=== PATIENT | male | born 1950 | race Caucasian/White ===

== ENCOUNTER 2020-04-17 08:53 | Outpatient (REF) | payer MEDICARE, SELFPAY ==
[2020-04-17 11:16] LABS: MANUAL DIFF FLAG NO
[2020-04-17 11:23] LABS: Basophils Percent Auto 0.7 % (0-2); Eosinophils Absolute Auto 0.2 X10*3/uL (0.0-0.4); Eosinophils Percent Auto 3.7 % (0-4); Hematocrit 42.3 % (42-52); Hemoglobin 14.9 g/dl (14.0-18.0); Imm Gran Abs Auto 0.01 X10*3/uL (0.00-0.03); Imm Gran Pct Auto 0.2 % (0.0-0.4); Lymphocytes Absolute Auto 1.2 X10*3/uL (1.2-4.9); Lymphocytes Percent Auto 28.3 % (20-40); Mean Corpuscular HGB Conc 35.2 g/dl (31.0-36.0); Mean Corpuscular Hemoglobin 31.4 pg (27.0-33.0); Mean Corpuscular Volume 89.2 fL (80-98); Mean Platelet Volume 9.8 fL (9.4-12.4); Monocytes Absolute Auto 0.4 X10*3/uL (0.1-1.2); Monocytes Percent Auto 9.8 % (2-11); Neutrophils Absolute Auto 2.5 X10*3/uL (2.0-8.3); Neutrophils Percent Auto 57.3 % (45-73); Platelet Count 201 X10*3/uL (160-400); Red Blood Count 4.74 X10*6/uL (4.60-5.80); Red Cell Distribution Width 12.2 % (11.0-16.0); White Blood Count 4.4 X10*3/uL (4.8-10.8)
[2020-04-17 12:17] LABS: Alanine Aminotransferase 28 U/L (0-40); Albumin Level 4.5 g/dL (3.5-5.0); Alkaline Phosphatase 99 U/L (39-117); Anion Gap 12 (12-20); Aspartate Amino Transferase 25 U/L (5-37); Bilirubin Total 1.2 mg/dL (0.0-1.0); Blood Urea Nitrogen 14 mg/dL (9-16); Carbon Dioxide 27 mmol/L (22-29); Chloride 107 mmol/L (96-108); Cholesterol 111 mg/dL; Estimated Glomerular Filt Rate > 60; Glucose Fasting 96 mg/dL (60-99); HDL Cholesterol 49 mg/dL; LDL Cholesterol Calculated 51 mg/dl; Potassium 4.4 mmol/l (3.3-5.1); Sodium 142 mmol/L (135-145); Total Protein 6.9 g/dL (6.5-8.0); Triglycerides 57 mg/dL
[2020-04-17 12:29] LABS: Creatinine Urine 162.29 mg/dL; Microalbum/Creatinine Ratio Ur 5.5 ug/mg cr
== END 2020-04-17 08:54 | disposition home or self-care (01) ==
LOC: HO.HMGCLDS 08:53
PROVIDERS: PCP Physician Assistant; Visit Provider Physician Assistant
DX: I25.10 Atherosclerotic heart disease of native coronary artery without angina pectoris (principal); Z95.5 Presence of coronary angioplasty implant and graft
CPT/HCPCS: 36415; 80053; 80061; 82043; 85025

== ENCOUNTER 2020-08-19 10:37 | Outpatient (REF) | payer MEDICARE, SELFPAY ==
--- NOTE | ~2020-08-19 | US_ITS ---
EXAMINATION: US RETROPERITONEAL LIMITED (AORTA) CLINICAL INFORMATION: Atherosclerotic heart disease of [place] coronary. COMPARISON: None. TECHNIQUE: Grayscale, color Doppler and spectral Doppler evaluation of the abdominal aorta. FINDINGS: There is atherosclerotic disease. The measurements of the aorta in maximum AP and transverse dimensions respectively are as follows: PROXIMAL: 2.8 x 2.6 cm. MID: 2.3 x 2.3 cm. DISTAL: 1.6 x 1.9 cm. PSV: 100 The measurements of the common iliac arteries in maximum AP dimension are as follows: RIGHT COMMON ILIAC ARTERY: 1.3 cm. LEFT COMMON ILIAC ARTERY: 1.1 cm. US/US abdominal aortic aneurysm IMPRESSION: No abdominal aortic or iliac artery aneurysm.
== END 2020-08-19 10:38 | disposition home or self-care (01) ==
LOC: HO.HMGCX 10:37
PROVIDERS: PCP Physician Assistant; Visit Provider Physician Assistant
DX: I25.10 Atherosclerotic heart disease of native coronary artery without angina pectoris (principal); I10 Essential (primary) hypertension
CPT/HCPCS: 76706

== ENCOUNTER 2020-10-20 09:39 | Outpatient (REF) | payer MEDICARE, SELFPAY ==
[2020-10-20 11:54] LABS: Estimated Average Glucose 105 mg/dL; Hemoglobin A1c % 5.3 %
[2020-10-20 11:55] LABS: Alanine Aminotransferase 30 U/L (0-40); Albumin Level 4.3 g/dL (3.5-5.0); Alkaline Phosphatase 101 U/L (39-117); Anion Gap 12 (12-20); Aspartate Amino Transferase 28 U/L (5-37); Bilirubin Total 1.1 mg/dL (0.0-1.0); Blood Urea Nitrogen 13 mg/dL (9-16); Calcium 9.5 mg/dL (8.4-10.2); Carbon Dioxide 27 mmol/L (22-29); Chloride 107 mmol/L (96-108); Cholesterol 114 mg/dL; Estimated Glomerular Filt Rate > 60; Glucose Fasting 100 mg/dL (60-99); HDL Cholesterol 48 mg/dL; Hematocrit 42.7 % (42-52); Hemoglobin 14.8 g/dl (14.0-18.0); LDL Cholesterol Calculated 54 mg/dl; Mean Corpuscular HGB Conc 34.7 g/dl (31.0-36.0); Mean Corpuscular Hemoglobin 31.2 pg (27.0-33.0); Mean Corpuscular Volume 89.9 fL (80-98); Mean Platelet Volume 9.6 fL (9.4-12.4); Platelet Count 206 X10*3/uL (160-400); Potassium 4.6 mmol/L (3.3-5.1); Red Blood Count 4.75 X10*6/uL (4.60-5.80); Red Cell Distribution Width 12.3 % (11.0-16.0); Sodium 141 mmol/L (135-145); Total Protein 6.8 g/dL (6.5-8.0); Triglycerides 61 mg/dL; White Blood Count 4.7 X10*3/uL (4.8-10.8)
[2020-10-20 12:04] LABS: Prostate Specific Antigen Scr 0.19 ng/mL (<0.05-4.0); TSH reflex Free T4 0.56 uIU/mL (0.32-4.0)
== END 2020-10-20 09:40 | disposition home or self-care (01) ==
LOC: HO.HMGCLDS 09:39
PROVIDERS: PCP Physician Assistant; Visit Provider Physician Assistant
DX: Z12.5 Encounter for screening for malignant neoplasm of prostate (principal); I25.10 Atherosclerotic heart disease of native coronary artery without angina pectoris; I10 Essential (primary) hypertension
CPT/HCPCS: 36415; 80053; 80061; 83036; 84153; 84443; 85027

== ENCOUNTER 2021-04-02 10:06 | Outpatient (REF) | payer MEDICARE, SELFPAY ==
[2021-04-02 11:31] LABS: Hematocrit 43.8 % (42.0-52.0); Hemoglobin 15.7 g/dl (14.0-18.0); Mean Corpuscular HGB Conc 35.8 g/dl (31.0-36.0); Mean Corpuscular Hemoglobin 31.8 pg (27.0-33.0); Mean Corpuscular Volume 88.8 fL (80.0-98.0); Mean Platelet Volume 9.7 fL (9.4-12.4); Platelet Count 209 X10*3/uL (160-400); Red Blood Count 4.93 X10*6/uL (4.60-5.80); Red Cell Distribution Width 12.3 % (11.0-16.0)
[2021-04-02 12:16] LABS: Alanine Aminotransferase 31 U/L (0-40); Albumin Level 4.5 g/dL (3.5-5.0); Alkaline Phosphatase 101 U/L (39-117); Anion Gap 13 (12-20); Aspartate Amino Transferase 26 U/L (5-37); Bilirubin Total 1.2 mg/dL (0.0-1.0); Blood Urea Nitrogen 17 mg/dL (9-16); Calcium 9.9 mg/dL (8.4-10.2); Carbon Dioxide 25 mmol/L (22-29); Chloride 107 mmol/L (96-108); Cholesterol 128 mg/dL; Estimated Glomerular Filt Rate > 60; Glucose Fasting 106 mg/dL (60-99); HDL Cholesterol 51 mg/dL; LDL Cholesterol Calculated 56 mg/dl; Potassium 4.3 mmol/L (3.3-5.1); Sodium 141 mmol/L (135-145); Total Protein 7.4 g/dL (6.5-8.0); Triglycerides 107 mg/dL
[2021-04-02 12:32] LABS: Creatinine Urine 173.55 mg/dL; Microalbum/Creatinine Ratio Ur 5.7 ug/mg cr
[2021-04-02 12:39] LABS: Prostate Specific Antigen Scr 0.17 ng/mL (<0.05-4.0); TSH reflex Free T4 0.51 uIU/mL (0.32-4.0)
== END 2021-04-02 10:07 | disposition home or self-care (01) ==
LOC: HO.HMGCLDS 10:06
PROVIDERS: PCP Physician Assistant; Visit Provider Physician Assistant
DX: Z12.5 Encounter for screening for malignant neoplasm of prostate (principal); I25.10 Atherosclerotic heart disease of native coronary artery without angina pectoris; I10 Essential (primary) hypertension
CPT/HCPCS: 36415; 80053; 80061; 82043; 84153; 84443; 85027

== ENCOUNTER 2021-05-18 11:06 | Outpatient (REF) | payer MEDICARE, SELFPAY ==
[2021-05-18 14:19] LABS: Anion Gap 10 (12-20); Blood Urea Nitrogen 11 mg/dL (9-16); Carbon Dioxide 27 mmol/L (22-29); Chloride 106 mmol/L (96-108); Estimated Glomerular Filt Rate > 60; Glucose Random 101 mg/dL (60-115); Potassium 4.2 mmol/L (3.3-5.1); Sodium 139 mmol/L (135-145)
== END 2021-05-18 11:07 | disposition home or self-care (01) ==
LOC: HO.LAB 11:06
PROVIDERS: Absent Provider Physician Assistant; PCP Physician Assistant; Visit Provider Internal Medicine Cardiovascular Disease
DX: I10 Essential (primary) hypertension (principal)
CPT/HCPCS: 36415; 80048

== ENCOUNTER 2021-08-27 13:19 | Outpatient (REF) | payer MEDICARE, SELFPAY ==
--- NOTE | ~2021-08-27 | XR_ITS ---
EXAMINATION: XR CERVICAL SPINE CLINICAL INFORMATION: Cervicalgia COMPARISON: None TECHNIQUE: 3 views of the cervical spine were obtained. FINDINGS: No fracture or subluxation. Vertebral body height and alignment maintained. Mild disc space narrowing throughout the cervical spine with prominent endplate osteophytes throughout. Vascular calcifications in the left neck. The atlantoaxial joint is well aligned. The dens is intact. The lung apices are clear. The prevertebral soft tissues are unremarkable. XR/XR cervical spine 3V IMPRESSION: Moderate degenerative changes of the cervical spine.
--- NOTE | ~2021-08-27 | XR_ITS ---
EXAMINATION: XR SHOULDER, LEFT XR SHOULDER, RIGHT CLINICAL INFORMATION: Cervicalgia COMPARISON: None TECHNIQUE: Single view of each shoulder FINDINGS: No fracture or dislocation of either shoulder. The glenohumeral joints are well aligned. The acromioclavicular joints are intact. The visualized lungs are clear. The visualized ribs are intact. XR/XR shoulder LT 1V IMPRESSION: Normal appearance of both shoulders on this single view.
--- NOTE | ~2021-08-27 | XR_ITS ---
EXAMINATION: XR SHOULDER, LEFT XR SHOULDER, RIGHT CLINICAL INFORMATION: Cervicalgia COMPARISON: None TECHNIQUE: Single view of each shoulder FINDINGS: No fracture or dislocation of either shoulder. The glenohumeral joints are well aligned. The acromioclavicular joints are intact. The visualized lungs are clear. The visualized ribs are intact. XR/XR shoulder RT 1V IMPRESSION: Normal appearance of both shoulders on this single view.
== END 2021-08-27 13:20 | disposition home or self-care (01) ==
LOC: HO.HMGCX 13:19
PROVIDERS: PCP Physician Assistant; Visit Provider Physician Assistant
DX: M25.511 Pain in right shoulder (principal); M25.512 Pain in left shoulder; M54.2 Cervicalgia
CPT/HCPCS: 72040; 73020

== ENCOUNTER 2021-10-23 08:17 | Outpatient (REF) | payer MEDICARE, SELFPAY ==
[2021-10-23 12:06] LABS: Hematocrit 43.6 % (42.0-52.0); Hemoglobin 15.6 g/dl (14.0-18.0); Mean Corpuscular HGB Conc 35.8 g/dl (31.0-36.0); Mean Corpuscular Hemoglobin 31.6 pg (27.0-33.0); Mean Corpuscular Volume 88.3 fL (80.0-98.0); Mean Platelet Volume 9.6 fL (9.4-12.4); Platelet Count 205 X10*3/uL (160-400); Red Blood Count 4.94 X10*6/uL (4.60-5.80); Red Cell Distribution Width 12.6 % (11.0-16.0); White Blood Count 5.7 X10*3/uL (4.8-10.8)
[2021-10-23 12:18] LABS: Alanine Aminotransferase 25 U/L (0-40); Albumin Level 4.5 g/dL (3.5-5.0); Alkaline Phosphatase 95 U/L (39-117); Anion Gap 13 (12-20); Aspartate Amino Transferase 26 U/L (5-37); Bilirubin Total 1.2 mg/dL (0.0-1.0); Blood Urea Nitrogen 15 mg/dL (9-16); Calcium 9.5 mg/dL (8.4-10.2); Carbon Dioxide 27 mmol/L (22-29); Chloride 104 mmol/L (96-108); Cholesterol 123 mg/dL; Estimated Average Glucose 103 mg/dL; Estimated Glomerular Filt Rate > 60; Glucose Fasting 104 mg/dL (60-99); HDL Cholesterol 52 mg/dL; Hemoglobin A1c % 5.2 %; LDL Cholesterol Calculated 58 mg/dl; Potassium 4.2 mmol/L (3.3-5.1); Sodium 140 mmol/L (135-145); Total Protein 7.1 g/dL (6.5-8.0); Triglycerides 69 mg/dL
== END 2021-10-23 08:18 | disposition home or self-care (01) ==
LOC: HO.HMGCLDS 08:17
PROVIDERS: PCP Physician Assistant; Visit Provider Physician Assistant
DX: I10 Essential (primary) hypertension (principal); I25.10 Atherosclerotic heart disease of native coronary artery without angina pectoris; R73.09 Other abnormal glucose
CPT/HCPCS: 36415; 80053; 80061; 83036; 85027

== ENCOUNTER 2021-10-29 13:00 | Outpatient (RCR) | payer MEDICARE, SELFPAY | END 2021-10-29 13:56 | disposition home or self-care (01) | LOC: HO.PTCHIC 13:00 | PROVIDERS: PCP Internal Medicine; Visit Provider Physical Medicine & Rehabilitation | DX: M54.2 Cervicalgia (principal) | CPT/HCPCS: 97110; 97140; 97162 ==

== ENCOUNTER 2022-03-23 10:05 | Outpatient (REF) | payer MEDICARE, SELFPAY ==
[2022-03-23 11:41] LABS: Hematocrit 44.1 % (42.0-52.0); Hemoglobin 15.4 g/dl (14.0-18.0); Mean Corpuscular HGB Conc 34.9 g/dl (31.0-36.0); Mean Corpuscular Volume 88.9 fL (80.0-98.0); Mean Platelet Volume 9.6 fL (9.4-12.4); Platelet Count 202 X10*3/uL (160-400); Red Blood Count 4.96 X10*6/uL (4.60-5.80); White Blood Count 4.3 X10*3/uL (4.8-10.8)
[2022-03-23 12:21] LABS: Creatinine Urine 155.25 mg/dL; Microalbum/Creatinine Ratio Ur 5.1 ug/mg cr
[2022-03-23 12:58] LABS: Alanine Aminotransferase 20 U/L (0-40); Albumin Level 4.3 g/dL (3.5-5.0); Alkaline Phosphatase 116 U/L (39-117); Anion Gap 10 (12-20); Aspartate Amino Transferase 22 U/L (5-37); Bilirubin Total 1.3 mg/dL (0.0-1.0); Blood Urea Nitrogen 16 mg/dL (9-16); Calcium 9.6 mg/dL (8.4-10.2); Carbon Dioxide 30 mmol/L (22-29); Chloride 105 mmol/L (96-108); Cholesterol 122 mg/dL; Estimated Glomerular Filt Rate > 60; Glucose Fasting 95 mg/dL (60-99); HDL Cholesterol 51 mg/dL; LDL Cholesterol Calculated 57 mg/dl; Potassium 4.2 mmol/L (3.3-5.1); Sodium 141 mmol/L (135-145); Total Protein 6.9 g/dL (6.5-8.0); Triglycerides 72 mg/dL
[2022-03-23 13:18] LABS: Prostate Specific Antigen Scr 0.23 ng/mL (<0.05-4.0); TSH reflex Free T4 0.92 uIU/mL (0.32-4.0)
== END 2022-03-23 10:06 | disposition home or self-care (01) ==
LOC: HO.HMGCLDS 10:05
PROVIDERS: PCP Physician Assistant; Visit Provider Physician Assistant
DX: Z12.5 Encounter for screening for malignant neoplasm of prostate (principal); I10 Essential (primary) hypertension; I25.10 Atherosclerotic heart disease of native coronary artery without angina pectoris
CPT/HCPCS: 36415; 80053; 80061; 82043; 84153; 84443; 85027

== ENCOUNTER 2022-10-27 07:33 | Outpatient (REF) | payer MEDICARE, SELFPAY ==
[2022-10-27 11:49] LABS: Mean Corpuscular HGB Conc 34.9 g/dl (31.0-36.0); Mean Corpuscular Hemoglobin 31.1 pg (27.0-33.0); Mean Corpuscular Volume 89.2 fL (80.0-98.0); Mean Platelet Volume 9.8 fL (9.4-12.4); Platelet Count 192 X10*3/uL (160-400); Red Blood Count 4.82 X10*6/uL (4.60-5.80); Red Cell Distribution Width 12.9 % (11.0-16.0); White Blood Count 5.5 X10*3/uL (4.8-10.8)
[2022-10-27 12:06] LABS: Alanine Aminotransferase 21 U/L (0-40); Albumin Level 4.2 g/dL (3.5-5.0); Alkaline Phosphatase 107 U/L (39-117); Anion Gap 12 (12-20); Aspartate Amino Transferase 20 U/L (5-37); Bilirubin Total 1.1 mg/dL (0.0-1.0); Blood Urea Nitrogen 14 mg/dL (9-16); Calcium 9.5 mg/dL (8.4-10.2); Carbon Dioxide 27 mmol/L (22-29); Chloride 107 mmol/L (96-108); Cholesterol 117 mg/dL; Estimated Glomerular Filt Rate > 60; Glucose Fasting 111 mg/dL (60-99); HDL Cholesterol 54 mg/dL; LDL Cholesterol Calculated 52 mg/dl; Sodium 142 mmol/L (135-145); Total Protein 7.1 g/dL (6.5-8.0); Triglycerides 55 mg/dL
[2022-10-27 12:25] LABS: Creatinine Urine 247.27 mg/dL; Microalbum/Creatinine Ratio Ur 5.2 ug/mg cr
== END 2022-10-27 07:34 | disposition home or self-care (01) ==
LOC: HO.HMGCLDS 07:33
PROVIDERS: PCP Physician Assistant; Visit Provider Physician Assistant
DX: I25.10 Atherosclerotic heart disease of native coronary artery without angina pectoris (principal); I10 Essential (primary) hypertension
CPT/HCPCS: 36415; 80053; 80061; 82043; 85027

== ENCOUNTER 2022-11-02 09:16 | Outpatient (AMB) | payer MEDICARE, SELFPAY ==
[2022-11-02 09:34] VITALS: BP 126/82; PULSE 69; O2SAT 98; BMI 25.9
--- NOTE | 2022-11-02 09:34 | MHC.PC.OV ---
Vital Signs 11/02/22 09:34 Height 5 ft 7 in Weight 165 lb 6 oz BMI 25.9 BP 126/82 Blood Pressure Location Lt brachial Position Sitting Pulse 69 Pulse Source Pulse Oximeter Pulse Oximetry (%) 98 Oxygen Delivery Method Room Air Intake Visit Reasons: PE Allergies No Known Allergies Allergy (Verified 11/02/22 10:07) Medication List - Last Reconciled 11/02/22 by Joe Tate PA-C alprazolam 0.5 mg PO Q8H 30 days aspirin 81 mg PO DAILY atorvastatin 80 mg PO DAILY 90 days cholecalciferol (vitamin D3) 25 mcg PO DAILY fexofenadine ([facility]elia Allergy) 180 mg PO DAILY 90 days fluticasone propionate 50 mcg/actuation (Flonase Allergy Relief) 1 spray intranasal DAILY 30 days losartan 50 mg PO DAILY sertraline 50 mg PO DAILY 90 days Tobacco use date assessed: 03/25/22 HPI PE HPI Details Patient is a 71-year-old male here today for follow-up visit ? Patient has a past medical history significant for hypertension, coronary artery disease with history of stent placement, impaired glucose metabolism, generalized anxiety disorder. ? . ? CAD: Is followed by [facility] , had an [facility] in May of 2019. ? Denies any CP, SOB or CHF symptoms.? Most recent LDL at 53 ? .. ? HTN: REport BP has been stable at home reporting at reports 120 systolic and on occasion 140 systolic . He? denies any chest discomfort, shortness of breath, vision issues or headaches.? Today in office blood pressure acceptable slightly elevated ?? Element of white coat HTN. We did increase his losartan to 50 mg daily which has helped normalizes blood pressure ? .. ? FELIPE: On XanaX 0.5 g TID and feels he is unable to function without alprazolam. Patient declines my offers to see therapist and psychiatrist at this time.? He has tried hydroxyzine though felt he had side effect in did not help to reduce his anxiety. Has been on Zoloft 50 mg to which he reports he does feel a difference in the severity of his anxiety.? He has been reducing his alprazolam dosing to b.i.d. at times. Again had a long conversation about weaning his dose of Xanax and patient does somewhat understand this.? Patient does have benzodiazepine dependence and he understands this. He is willing to slowly wean his dose as tolerated. .. Vaccines: Up-to-date with COVID, flu, shingles, pneumonia and tetanus vaccines Colon cancer screening: Colonoscopy done 2014 normal repeat 10 years [facility] Surgical History H/O wrist surgery History of colonoscopy History of intravascular stent placement History of tonsillectomy Family History Father Melanoma Mother Alzheimers disease Mental health disorder Social History (Updated 11/02/22 @ 10:10 by Joe Tate PA-C) Housing: House Alcohol intake: current Alcohol intake frequency: holidays/special occasions only Alcohol type: beer Patient Tobacco Use Status: Former Tobacco user Quit Date: 1994 e-Cigarette/Vaping Use: Never Used Second Hand Smoke Exposure: No service: No Current occupational status: retired Cognitive needs: No Hearing needs: No Vision needs: Yes (reading glasses) Questionnaire PHQ-9 Over the last 2 weeks, how often have you been bothered by any of the following problems? 1. Little interest or pleasure in doing things: not at all 2. Feeling down, depressed, or hopeless: not at all 3. Trouble falling or staying asleep, or sleeping too much: not at all 4. Feeling tired or having little energy: not at all 5. Poor appetite or overeating: not at all 6. Feeling bad about yourself - or that you are a failure or have let yourself or your family down: not at all 7. Trouble concentrating on things, such as reading the newspaper or watching television: not at all 8. Moving or speaking so slowly that other people could have noticed. Or the opposite - being so fidgety or restless that you have been moving around a lot more than usual: not at all 9. Thoughts that you would be better off or of hurting yourself in some way: not at all Total score: 0 Depression Screening Interpretation: Negative 58419 - PHQ-9 Billing: Yes Source: Developed by Drs. Catracho Morrison, Yodit B.Massimo Smart and colleagues, with an educational ap from [employer]. Thrive Questionnaire Date Thrive assessed: 03/25/22 I am a: Patient What is your living situation today?: I have a steady place to live Within the past 12 months, did the food you bought not last and you didn't have the money to get more?: Never true Within the past 12 months, did you worry whether your food would run out before you got money to buy more?: Never true Currently or been in a relationship where the following occur: no concerns reported AUDIT C Alcohol Use Questionnaire (AUDIT-C) 1. How often do you have a drink containing alcohol?: Monthly or less 2. How many drinks containing alcohol do you have on a typical day when you are drinking?: 1 or 2 3. How often do you have six or more drinks on one occasion?: Never Total Score: 1 FELIPE-7 AMB Questionnaire FELIPE-7 Date FELIPE - 7 assessed: 03/25/22 Feeling nervous, anxious, or on edge: 1 = Several days Not being able to stop or control worryin = Not at all Worrying too much about different things: 1 = Several days Trouble relaxin = Several days Being so restless that it is hard to sit still: 1 = Several days Becoming easily annoyed or irritable: 1 = Several days Feeling afraid as if something awful might happen: 0 = Not at all Total FELIPE-7 score (0-4 normal; 5-9 mild; 10-14 moderate; 15-21 severe): 5 Source: Developed by Drs. Catracho Morrison, Massimo Hollins and colleagues, with an educational ap from [employer]. FELIPE-7 Assessment Billing FELIPE-7 Assessment Tool: FELIPE-7 Assessment 10848 Review of Systems Const Denies body aches, Denies chills, Denies excessive sweating, Denies fatigue, Denies fever(s) and Denies headache(s) Eyes Denies blurry vision ENT Denies dysphagia, Denies vertigo, Denies dizziness, Denies headache(s), Denies hearing loss and Denies tinnitus Card Denies chest pain, Denies chest pain with activity, Denies syncope, Denies irregular heart rhythm and Denies dyspnea Resp Denies chest congestion, Denies cough, Denies hemoptysis, Denies dyspnea and Denies wheezing GI Denies abdominal pain, Denies melena, Denies hematochezia, Denies coffee ground emesis, Denies dysphagia, Denies diarrhea, Denies nausea and Denies vomiting Denies difficulty urinating, Denies dysuria, Denies urinary frequency, Denies urinary hesitancy and Denies urinary urgency Musc Denies arthralgias, Denies limited range of motion, Denies muscle cramps and Denies muscle weakness Skin/Breast Denies rash and Denies skin ulcer Neuro Denies Abnormal speech present, Denies confusion, Denies vertigo, Denies dizziness, Denies syncope, Denies headache(s), Denies memory loss and Denies seizure-like activity Psych Denies anxiety, Denies confusion, Denies depression, Denies memory loss, Denies panic attacks and Denies paranoia Endo Denies excessive sweating, Denies fatigue, Denies flushing, Denies polydipsia and Denies polyuria Aller/Immun Denies wheezing Physical exam (Primary Care) Vital Signs: Last Vital Signs Pulse 69 11/02/22 09:34 BP 126/82 11/02/22 09:34 Pulse Ox 98 11/02/22 09:34 Oxygen Delivery Method Room Air 11/02/22 09:34 BMI result Body Mass Index 25.9 Tobacco/Smoking Status: Tobacco use Status Tobacco use date assessed 03/25/22 11/02/22 09:35 Patient Tobacco Use Status Former Tobacco user 11/02/22 09:35 e-Cigarette/Vaping Use Never Used 11/02/22 09:35 PHQ-9: PHQ-9 Score PHQ-9: Total score 0 11/02/22 09:49 Depression Screening Interpretation: Negative Thrive Assessment: Date of Thrive Assessment Date Thrive assessed 03/25/22 11/02/22 09:35 Currently or been in a relationship where the following occur: no concerns reported Const General: cooperative, comfortable, no acute distress, alert and awake; No confusion Orientation/consciousness: oriented to person, oriented to place, patient oriented x3 and No confusion HENMT Head: Yes normocephalic Ears: external ears normal and TM's normal bilaterally Face and sinus: No sinus tenderness Mouth: Normal oral and palatal mucosa present and tongue normal Teeth and gingiva: dentition normal and gingiva normal Throat: Yes posterior oropharynx normal, Yes tonsils normal and Yes uvula midline Eyes Conjunctivae: conjunctivae normal Sclerae: sclerae normal Pupils: Equal, round and reactive pupils present EOM: EOMs intact bilaterally Direct Ophthalmoscopy: No no photophobia Neck Neck: Yes no lymphadenopathy, No tender and Yes no JVD Thyroid: Thyroid normal Carotids: no bruits Chest Chest palpation & inspection: no tenderness Resp Effort & Inspection: normal respiratory effort, no audible wheezes, not labored and no stridor Auscultation: no crackles, no rales, no rhonchi and no wheezes Cardio Jugular venous distension: no JVD Rate: regular rate, not bradycardic and not tachycardic Rhythm: regular rhythm Bruits: no carotid bruits Peripheral pulses: Peripheral pulses 2+ throughout GI Inspection: Yes normal to inspection, No abdominal wall ecchymosis and No visible herniation Palpation (GI): Soft to palpation, nontender, no guarding, not rigid and No hepatosplenomegaly present Auscultation: normoactive bowel sounds General: Yes no CVA tenderness Back/Spine/Pelvis Back: no CVA tenderness and No back tenderness Cervical Spine: cervical ROM normal Thoracic/Lumbar Spine: thoracic and lumbar spine normal to inspection, straight leg raise negative bilaterally, No thoraco-lumbar ROM limited and No lumbar spinal tenderness Skin Lesions: no lesions Rashes: no rashes Wounds: no wounds Neuro General: oriented to person, oriented to place, patient oriented x3, CN's II-XI intact bilaterally and No confusion Cranial nerves: Yes Equal, round and reactive pupils present and Yes Normal accommodation reflex present Cognition (Neuro): normal cognition Speech: No Abnormal speech present Gait exam (Neuro): Normal gait present Motor exam (neuro): 5/5 motor strength present throughout Extrem Right upper extremity: full ROM; no cyanosis Left upper extremity: full ROM; no cyanosis Right lower extremity: no edema Left lower extremity: no edema Psych Appearance: grossly normal Mental Status: mental status grossly normal Affect: normal affect Attitude: cooperative Thought process: Normal thought process present Assessment and Plan Assessment & Plan (1) Annual physical exam: Code(s): Z00.00 - Encounter for general adult medical examination without abnormal findings (2) HTN (hypertension): Code(s): I10 - Essential (primary) hypertension Qualifiers: Hypertension type: essential hypertension Qualified Code(s): I10 - Essential (primary) hypertension Plan: Patient's blood pressure acceptable today in office. He does do home blood pressure readings which seem to be 110s to 130 systolic. Otherwise denies any chest pain, dizziness or headaches. Will continue current dose of losartan with goal blood pressure remain below 140/90 (3) CAD (coronary artery disease): Code(s): I25.10 - Atherosclerotic heart disease of [place] coronary artery without angina pectoris Qualifiers: Coronary Disease-Associated Artery/Lesion type: [place] artery [place] vs. transplanted heart: [place] heart Associated angina: without angina Qualified Code(s): I25.10 - Atherosclerotic heart disease of [place] coronary artery without angina pectoris Plan: Patient continues to follow cardiology on annual basis. Most recent lipid panel showing excellent control over his total cholesterol and LDL. Goal LDL is to remain below 70 (4) FELIPE (generalized anxiety disorder): Code(s): F41.1 - Generalized anxiety disorder Plan: Patient continues on alprazolam and sertraline for his anxiety. He does still have some breakthrough anxiety, we did discuss the habit-forming nature of benzodiazepines and patient does understand the risk of continuing taking benzodiazepines and well into his 70s. He will try to continue weaning the daily dose Orders: Orders Comprehensive [place]. Panel Fast 6 Months I10 - Essential (primary) hypertension Hemoglobin A1c 6 Months R73.09 - Other abnormal glucose Lipid Panel 6 Months I25.10 - Atherosclerotic heart disease of [place] coronary artery without angina pectoris Prostate Specific Antigen Scr 6 Months I25.10 - Atherosclerotic heart disease of [place] coronary artery without angina pectoris, Z12.5 - Encounter for screening for malignant neoplasm of prostate Complete Blood Count no Diff 6 Months I25.10 - Atherosclerotic heart disease of [place] coronary artery without angina pectoris Coding Level of Care Code Est Pt Prev Care >65y([id number]) Diagnoses Annual physical exam Z00.00 HTN (hypertension) I10 Hypertension type: essential hypertension CAD (coronary artery disease) I25.10 Coronary Disease-Associated Artery/Lesion type: [place] artery [place] vs. transplanted heart: [place] heart Associated angina: without angina FELIPE (generalized anxiety disorder) F41.1 Additional Codes FELIPE-7 Assessment Billing - FELIPE-7 Assessment Tool: FELIPE-7 Assessment 10574 ([id number])
== END 2022-11-02 10:26 | disposition home or self-care (01) ==
PROVIDERS: PCP Physician Assistant; Visit Provider Physician Assistant
DX: Z00.00 Encounter for general adult medical examination without abnormal findings (principal); I10 Essential (primary) hypertension; I25.10 Atherosclerotic heart disease of native coronary artery without angina pectoris; F41.1 Generalized anxiety disorder
CPT/HCPCS: 99397

== ENCOUNTER → 2023-03-31 13:40 | Outpatient (REF) | payer MEDICARE, SELFPAY ==
--- NOTE | 2023-03-31 13:45 | ECG_ITS ---
Test Reason : dyspnea Blood Pressure : / mmHG Vent. Rate : 060 BPM Atrial Rate : 060 BPM P-R Int : 142 ms QRS Dur : 092 ms QT Int : 434 ms P-R-T Axes : 037 -29 027 degrees QTc Int : 434 ms Normal sinus rhythm with sinus arrhythmia Normal ECG No previous ECGs available Referred By: Joe Tate Electronically Signed By:NAIF TREVINO MD
== END ==
LOC: HO.CARD 13:40
PROVIDERS: PCP Physician Assistant; Visit Provider Physician Assistant
DX: R06.00 Dyspnea, unspecified (principal)
CPT/HCPCS: 93005

== ENCOUNTER → 2023-03-31 13:45 | Outpatient (BNV) | payer MEDICARE, SELFPAY | PROVIDERS: PCP Physician Assistant; Visit Provider Internal Medicine Cardiovascular Disease | DX: R06.00 Dyspnea, unspecified (principal) | CPT/HCPCS: 93010 ==

== ENCOUNTER 2023-04-01 08:42 | Outpatient (REF) | payer MEDICARE, SELFPAY ==
--- NOTE | ~2023-04-01 | XR_ITS ---
EXAMINATION: XR CHEST CLINICAL INFORMATION: Dyspnea COMPARISON: None available. TECHNIQUE: 2 views of the chest were obtained. FINDINGS: No significant abnormality is noted involving the heart, lungs, mediastinum, bony thorax or soft tissues. XR/XR chest 2V IMPRESSION: Unremarkable chest exam.
== END 2023-04-01 08:43 | disposition home or self-care (01) ==
LOC: HO.HMGCX 08:42
PROVIDERS: PCP Physician Assistant; Visit Provider Physician Assistant
DX: R06.00 Dyspnea, unspecified (principal)
CPT/HCPCS: 71046

== ENCOUNTER 2023-04-22 08:22 | Outpatient (REF) | payer MEDICARE, SELFPAY ==
[2023-04-22 11:54] LABS: Hematocrit 43.4 % (42.0-52.0); Hemoglobin 15.5 g/dl (14.0-18.0); Mean Corpuscular HGB Conc 35.7 g/dl (31.0-36.0); Mean Corpuscular Hemoglobin 31.4 pg (27.0-33.0); Mean Corpuscular Volume 87.9 fL (80.0-98.0); Mean Platelet Volume 9.5 fL (9.4-12.4); Platelet Count 194 X10*3/uL (160-400); Red Blood Count 4.94 X10*6/uL (4.60-5.80); Red Cell Distribution Width 12.5 % (11.0-16.0); White Blood Count 5.3 X10*3/uL (4.8-10.8)
[2023-04-22 12:00] LABS: Estimated Average Glucose 100 mg/dL; Hemoglobin A1c % 5.1 % (<6.0)
[2023-04-22 12:26] LABS: Alanine Aminotransferase 21 U/L (0-40); Albumin Level 4.3 g/dL (3.5-5.0); Alkaline Phosphatase 95 U/L (39-117); Anion Gap 13 (12-20); Aspartate Amino Transferase 22 U/L (5-37); Bilirubin Total 1.1 mg/dL (0.0-1.0); Blood Urea Nitrogen 15 mg/dL (9-16); Calcium 9.7 mg/dL (8.4-10.2); Carbon Dioxide 26 mmol/L (22-29); Chloride 105 mmol/L (96-108); Cholesterol 138 mg/dL (<200); Estimated Glomerular Filt Rate > 60; Glucose Fasting 114 mg/dL (60-99); HDL Cholesterol 57 mg/dL (>40); LDL Cholesterol Calculated 62 mg/dL (<100); Potassium 4.1 mmol/L (3.3-5.1); Sodium 140 mmol/L (135-145); Total Protein 7.3 g/dL (6.5-8.0); Triglycerides 95 mg/dL (<150)
[2023-04-22 12:27] LABS: Prostate Specific Antigen Scr 0.22 ng/mL (<0.05-4.0)
== END 2023-04-22 08:23 | disposition home or self-care (01) ==
LOC: HO.HMGCLDS 08:22
PROVIDERS: PCP Physician Assistant; Visit Provider Physician Assistant
DX: I25.10 Atherosclerotic heart disease of native coronary artery without angina pectoris (principal); R73.09 Other abnormal glucose; I10 Essential (primary) hypertension; Z12.5 Encounter for screening for malignant neoplasm of prostate
CPT/HCPCS: 36415; 80053; 80061; 83036; 84153; 85027

== ENCOUNTER 2023-05-04 07:34 | Outpatient (AMB) | payer MEDICARE, SELFPAY ==
[2023-05-04 07:54] VITALS: BP 160/80; BMI 25.7
--- NOTE | 2023-05-04 07:54 | A.OFFPC_ITS ---
Vital Signs 05/04/23 07:54 05/04/23 08:29 Height 5 ft 7 in Weight 164 lb BMI 25.7 BP 160/80 H 150/70 H Blood Pressure Location Lt brachial Position Sitting Intake Visit Reasons: f/u HTN/ CAD Intake Note: Patient here for a follow up HTN, CAD Applications Support Lead Required: No Accompanied by: Spouse Allergies No Known Allergies Allergy (Verified 05/04/23 08:02) Medication List - Last Reconciled 05/04/23 by Joe Tate PA-C alprazolam 0.5 mg PO Q8H 30 days aspirin 81 mg PO DAILY atorvastatin 80 mg PO DAILY 90 days cholecalciferol (vitamin D3) 25 mcg PO DAILY fexofenadine (Celia Allergy) 180 mg PO DAILY 90 days fluticasone propionate 50 mcg/actuation (Flonase Allergy Relief) 1 spray intranasal DAILY 30 days losartan 50 mg PO DAILY sertraline 50 mg PO DAILY 90 days Tobacco use date assessed: 05/04/23 Fall risk assessment: No Falls in past year Last assessed Fall Risk: 05/04/23 Dental Screening Dental Screen Date: 05/04/23 Did you have a dental visit in the last 12 months?: Yes Did you have a dental problem in the last 6 months where you did not have access to dental care?: No Was dental information given to patient?: Patient has dentist HPI f/u HTN/ CAD HPI Details Patient is a 72-year-old male here today for follow-up visit ? Patient has a past medical history significant for hypertension, coronary artery disease with history of stent placement, impaired glucose metabolism, generalized anxiety disorder. ? . ? CAD: Is followed by [facility] has upcoming appointment July of 2023 , had an [place] in May of 2019. ? Most recent lipid panel showing excellent control of his LDL. He does report over last several months noting some shortness of breath and weakness in his voice after physical activity. ? .. ? HTN: Patient's blood pressure today elevated, recently had colonoscopy procedure . He? denies any chest discomfort, shortness of breath, vision issues or headaches.? Today in office blood pressure acceptable slightly elevated ?? Element of white coat HTN. At home readings are 120s and 130 systolic. ? .. ? FELIPE: On XanaX 0.5 g TID and feels he is unable to function without alprazolam. Patient declines my offers to see therapist and psychiatrist at this time.? He has tried hydroxyzine though felt he had side effect in did not help to reduce his anxiety. Has been on Zoloft 50 mg to which he reports he does feel a difference in the severity of his anxiety.? He has been reducing his alprazolam dosing to b.i.d. at times. Again had a long conversation about weaning his dose of Xanax and patient does somewhat understand this.? Patient does have benzodiazepine dependence and he understands this. He is willing to slowly wean his dose as tolerated. Laboratory Tests 04/22/23 08:33 RBC 4.94 Creatinine 0.81 Fasting Glucose 114 H Hemoglobin A1c % 5.1 Cholesterol 138 LDL Cholesterol, C alc 62 PSA Screen 0.22 [facility] Surgical History History of intravascular stent placement History of colonoscopy H/O wrist surgery History of tonsillectomy Family History Father Melanoma Mother Alzheimers disease Mental health disorder Social History Housing: House Alcohol intake: current Alcohol intake frequency: holidays/special occasions only Alcohol type: beer Patient Tobacco Use Status: Former Tobacco user Quit Date: 1994 e-Cigarette/Vaping Use: Never Used Second Hand Smoke Exposure: No service: No Current occupational status: retired Cognitive needs: No Hearing needs: No Vision needs: Yes (reading glasses) Questionnaire PHQ-9 Over the last 2 weeks, how often have you been bothered by any of the following problems? 1. Little interest or pleasure in doing things: not at all 2. Feeling down, depressed, or hopeless: not at all 3. Trouble falling or staying asleep, or sleeping too much: not at all 4. Feeling tired or having little energy: not at all 5. Poor appetite or overeating: not at all 6. Feeling bad about yourself - or that you are a failure or have let yourself or your family down: not at all 7. Trouble concentrating on things, such as reading the newspaper or watching television: not at all 8. Moving or speaking so slowly that other people could have noticed. Or the opposite - being so fidgety or restless that you have been moving around a lot more than usual: not at all 9. Thoughts that you would be better off or of hurting yourself in some way: not at all Total score: 0 Depression Screening Interpretation: Negative Depression Screening Done: Yes 88720 - PHQ-9 Billing: Yes Source: Developed by Drs. Catracho Morrison, Yodit Hayden, Massimo Rosas and colleagues, with an educational ap from [employer]. Thrive Questionnaire Date Thrive assessed: 05/04/23 I am a: Patient What is your living situation today?: I have a steady place to live Within the past 12 months, did the food you bought not last and you didn't have the money to get more?: Never true Within the past 12 months, did you worry whether your food would run out before you got money to buy more?: Never true Do you have trouble paying for medicines?: No Do you have trouble getting transportation to medical appointments?: No Do you have trouble paying your heating and electricity bill?: No Do you have trouble taking care of your child, family member or friend?: No Do you have trouble with day-to-day activities such as bathing, preparing meals, shopping, managing finances, etc.?: No Are you currently unemployed and looking for a job?: No Are you interested in more education?: No Please select the resources that you would like help with: None Currently or been in a relationship where the following occur: no concerns reported THRIVE Score: 0 AUDIT C Alcohol Use Questionnaire (AUDIT-C) 1. How often do you have a drink containing alcohol?: Monthly or less 2. How many drinks containing alcohol do you have on a typical day when you are drinking?: 1 or 2 3. How often do you have six or more drinks on one occasion?: Never Total Score: 1 FELIPE-7 AMB Questionnaire FELIPE-7 Date FELIPE - 7 assessed: 05/04/23 Feeling nervous, anxious, or on edge: 1 = Several days Not being able to stop or control worryin = Not at all Worrying too much about different things: 1 = Several days Trouble relaxin = Several days Being so restless that it is hard to sit still: 0 = Not at all Becoming easily annoyed or irritable: 0 = Not at all Feeling afraid as if something awful might happen: 1 = Several days Total FELIPE-7 score (0-4 normal; 5-9 mild; 10-14 moderate; 15-21 severe): 4 Source: Developed by Drs. Catracho Morrison, Yodit Hayden, Massimo Rosas and colleagues, with an educational ap from [employer]. FELIPE-7 Assessment Billing FELIPE-7 Assessment Tool: FELIPE-7 Assessment 71538 Review of Systems Const Denies headache(s) Eyes Denies loss of vision ENT Denies vertigo, Denies dizziness, Denies headache(s) and Denies sore throat Card Denies chest pain, Denies leg edema and Denies lightheadedness Resp Denies cough, Denies hemoptysis and Denies wheezing GI Denies abdominal pain, Denies melena, Denies constipation, Denies diarrhea and Denies vomiting Denies dysuria, Denies urinary frequency and Denies urinary urgency Musc Denies arthralgias, Denies joint swelling, Denies numbness and Denies tingling Neuro Denies Abnormal speech present, Denies behavioral changes, Denies vertigo, Denies dizziness, Denies headache(s), Denies loss of vision, Denies memory loss, Denies numbness and Denies tingling Psych Denies anxiety, Denies behavioral changes, Denies depression, Denies memory loss and Denies panic attacks Mahin/Lymph Denies easy bleeding and Denies easy bruising Aller/Immun Denies wheezing Physical exam (Primary Care) Vital Signs: Last Vital Signs BP 160/80 H 05/04/23 07:54 BMI result Body Mass Index 25.7 Tobacco/Smoking Status: Tobacco use Status Tobacco use date assessed 05/04/23 05/04/23 08:01 Patient Tobacco Use Status Former Tobacco user 05/04/23 08:01 e-Cigarette/Vaping Use Never Used 05/04/23 08:01 PHQ-9: PHQ-9 Score PHQ-9: Total score 0 05/04/23 08:01 Depression Screening Interpretation: Negative Thrive Assessment: Date of Thrive Assessment Date Thrive assessed 05/04/23 05/04/23 08:01 Currently or been in a relationship where the following occur: no concerns reported Const General: healthy appearing, no acute distress, alert and awake Nutritional Appearance: well nourished Orientation/consciousness: oriented to person, oriented to place and oriented to time HENMT Ears: TM's normal bilaterally General nose exam: Normal nasal mucous membranes and turbinates present Eyes Conjunctivae: conjunctivae normal Sclerae: sclerae normal Pupils: Equal, round and reactive pupils present Neck Neck: Yes no lymphadenopathy and Yes no JVD Thyroid: Thyroid normal Carotids: no bruits Resp Effort & Inspection: normal respiratory effort and not tachypneic Auscultation: no crackles, no rales, no rhonchi and no wheezes Cardio Rate: regular rate Rhythm: regular rhythm Heart sounds: no murmurs and normal S1 and S2 GI Palpation (GI): Soft to palpation, nontender, no hepatomegaly and no splenomegaly Auscultation: normal bowel sounds Skin General skin exam: no rashes or lesions noted and dry skin Neuro General: oriented to person, oriented to place and oriented to time Cranial nerves: Yes Equal, round and reactive pupils present Speech: No Abnormal speech present Gait exam (Neuro): Normal gait present Motor exam (neuro): no tremor noted Extrem Right upper extremity: full ROM Left upper extremity: full ROM Right lower extremity: full ROM; no edema Left lower extremity: full ROM; no edema Psych Mental Status: mental status grossly normal Speech and movement: Normal speech and movement present Affect: normal affect Attitude: cooperative Thought process: Normal thought process present Assessment and Plan Assessment & Plan (1) HTN (hypertension): Code(s): I10 - Essential (primary) hypertension Qualifiers: Hypertension type: essential hypertension Qualified Code(s): I10 - Essential (primary) hypertension Plan: Patient's blood pressure slightly elevated today in office. He reports that home blood pressure readings are much better.. Will consider adding hydrochlorothiazide or increasing his dose of losartan blood pressures remain elevated He does do home blood pressure readings which seem to be 110s to 130 systolic. Otherwise denies any chest pain, dizziness or headaches. Will continue current dose of losartan with goal blood pressure remain below 140/90 (2) CAD (coronary artery disease): Code(s): I25.10 - Atherosclerotic heart disease of [place] coronary artery without angina pectoris Qualifiers: Coronary Disease-Associated Artery/Lesion type: [place] artery Habematolel vs. transplanted heart: [place] heart Associated angina: without angina Qualified Code(s): I25.10 - Atherosclerotic heart disease of [place] coronary artery without angina pectoris Plan: Patient continues to follow cardiology on annual basis. Most recent lipid panel showing excellent control over his total cholesterol and LDL. Goal LDL is to remain below 70 He does report recently having some shortness of breath on exertion and weakness in his voice. he is interested in getting a cardiac stress test (3) FELIPE (generalized anxiety disorder): Code(s): F41.1 - Generalized anxiety disorder Plan: Patient's FLEIPE-7 score positive for anxiety which has been existing condition for him.. Patient continues on alprazolam and sertraline for his anxiety. He does still have some breakthrough anxiety, we did discuss the habit-forming nature of benzodiazepines and patient does understand the risk of continuing taking benzodiazepines and well into his 70s. He will try to continue weaning the daily dose (4) Impaired glucose metabolism: Code(s): R73.09 - Other abnormal glucose Plan: Most recent fasting blood sugar 114, A1c of 5.1. Advised on continuing low sugar and carbohydrate diet. Orders: Orders Lipid Panel Today I25.10 - Atherosclerotic heart disease of [place] coronary artery without angina pectoris Comprehensive Josephine. Panel Fast Today I25.10 - Atherosclerotic heart disease of [place] coronary artery without angina pectoris Complete Blood Count no Diff Today I25.10 - Atherosclerotic heart disease of [place] coronary artery without angina pectoris CA stress test Today R06.00 - Dyspnea, unspecified Coding Level of Care Code Est Pt Level 4 (44653) Diagnoses Essential hypertension I10 Hypertension type: essential hypertension Coronary artery disease involving [place] coronary artery of [place] heart without angina pectoris I25.10 Coronary Disease-Associated Artery/Lesion type: [place] artery Habematolel vs. transplanted heart: [place] heart Associated angina: without angina FELIPE (generalized anxiety disorder) F41.1 Impaired glucose metabolism R73.09 Additional Codes FELIPE-7 Assessment Billing - FELIPE-7 Assessment Tool: FELIPE-7 Assessment [id number] ([id number])
[2023-05-04 08:29] VITALS: BP 150/70
== END 2023-05-04 08:27 | disposition home or self-care (01) ==
PROVIDERS: PCP Physician Assistant; Visit Provider Physician Assistant
DX: I10 Essential (primary) hypertension (principal); I25.10 Atherosclerotic heart disease of native coronary artery without angina pectoris; F41.1 Generalized anxiety disorder; R73.09 Other abnormal glucose
CPT/HCPCS: 99214

== ENCOUNTER 2023-10-05 07:55 | Outpatient (REF) | payer MEDICARE, SELFPAY ==
[2023-10-05 10:34] LABS: Hematocrit 42.3 % (42.0-52.0); Hemoglobin 15.2 g/dl (14.0-18.0); Mean Corpuscular HGB Conc 35.9 g/dl (31.0-36.0); Mean Corpuscular Hemoglobin 32.1 pg (27.0-33.0); Mean Corpuscular Volume 89.2 fL (80.0-98.0); Mean Platelet Volume 9.6 fL (9.4-12.4); Platelet Count 197 X10*3/uL (160-400); Red Blood Count 4.74 X10*6/uL (4.60-5.80); Red Cell Distribution Width 12.4 % (11.0-16.0); White Blood Count 5.1 X10*3/uL (4.8-10.8)
[2023-10-05 11:00] LABS: Alanine Aminotransferase 15 U/L (0-40); Albumin Level 4.4 g/dL (3.5-5.0); Alkaline Phosphatase 96 U/L (39-117); Anion Gap 11 (12-20); Aspartate Amino Transferase 20 U/L (5-37); Bilirubin Total 0.9 mg/dL (0.0-1.0); Blood Urea Nitrogen 13 mg/dL (9-16); Calcium 9.6 mg/dL (8.4-10.2); Carbon Dioxide 26 mmol/L (22-29); Chloride 107 mmol/L (96-108); Cholesterol 119 mg/dL (<200); Estimated Glomerular Filt Rate > 60; Glucose Fasting 107 mg/dL (60-99); HDL Cholesterol 52 mg/dL (>40); LDL Cholesterol Calculated 54 mg/dL (<100); Potassium 4.2 mmol/L (3.3-5.1); Sodium 140 mmol/L (135-145); Total Protein 7.2 g/dL (6.5-8.0); Triglycerides 68 mg/dL (<150)
== END 2023-10-05 07:56 | disposition home or self-care (01) ==
LOC: HO.HMGCLDS 07:55
PROVIDERS: PCP Physician Assistant; Visit Provider Physician Assistant
DX: I25.10 Atherosclerotic heart disease of native coronary artery without angina pectoris (principal)
CPT/HCPCS: 36415; 80053; 80061; 85027

== ENCOUNTER 2023-11-09 07:38 | Outpatient (AMB) | payer MEDICARE, SELFPAY ==
[2023-11-09 07:54] VITALS: BP 138/78; PULSE 72; O2SAT 98; BMI 26.0
--- NOTE | 2023-11-09 07:54 | A.OFFPC_ITS ---
Vital Signs 11/09/23 07:54 Height 5 ft 7 in Weight 166 lb BMI 26.0 BP 138/78 Blood Pressure Location Lt brachial Position Sitting Pulse 72 Pulse Source Pulse Oximeter Pulse Oximetry (%) 98 Oxygen Delivery Method Room Air Intake Visit Reasons: PE Allergies No Known Allergies Allergy (Verified 11/09/23 08:02) Medication List - Last Reconciled 11/09/23 by Joe Tate PA-C albuterol sulfate 90 mcg/actuation 1 inh inhalation QID PRN 30 days alprazolam 0.5 mg PO Q8H 30 days aspirin 81 mg PO DAILY atorvastatin 80 mg PO DAILY 90 days cholecalciferol (vitamin D3) 25 mcg PO DAILY fexofenadine (Celia Allergy) 180 mg PO DAILY 90 days fluticasone propionate 50 mcg/actuation (Flonase Allergy Relief) 1 spray intranasal DAILY 30 days isosorbide mononitrate ER 30 mg PO DAILY losartan 50 mg PO DAILY sertraline 50 mg PO DAILY 90 days Tobacco use date assessed: 05/04/23 Fall risk assessment: No Falls in past year Last assessed Fall Risk: 11/09/23 Dental Screening Dental Screen Date: 05/04/23 HPI PE HPI Details Patient is a 72-year-old male here today for routine annual physical ? Patient has a past medical history significant for hypertension, coronary artery disease with history of stent placement, impaired glucose metabolism, generalized anxiety disorder. ? . ? CAD: Is followed by wireless internet installer , had an PR in May of 2019. ? Most recent lipid panel showing excellent control of his LDL. He does report over last several months noting some shortness of breath and weakness in his voice after physical activity. He underwent echocardiogram and stress testing without any significant abnormalities. He was started on isosorbide and his losartan was changed to night dosing and symptoms have gotten better. ? .. ? HTN: Patient's blood pressure today acceptable. He? denies any chest discomfort, shortness of breath, vision issues or headaches.? At home readings are 120s and 130 systolic. ? .. ? FELIPE: He reports he has been reducing the amount of alprazolam he is using.. Patient declines my offers to see therapist and psychiatrist at this time.? He has tried hydroxyzine though felt he had side effect in did not help to reduce his anxiety. Has been on Zoloft 50 mg to which he reports he does feel a difference in the severity of his anxiety.? He has been reducing his alprazolam dosing to b.i.d. at times. Again had a long conversation about weaning his dose of Xanax and patient does somewhat understand this.? Patient does have benzodiazepine dependence and he understands this. He is willing to slowly wean his dose as tolerated. Vaccines: Up-to-date with COVID, flu, shingles, pneumonia and tetanus vaccines Colon cancer screening: Colonoscopy done 2023 normal repeat 10 years Laboratory Tests 04/22/23 10/05/23 08:33 08:15 RBC 4.74 Hgb 15.2 Creatinine 0.77 Fasting Glucose 114 H 107 H Cholesterol 138 119 PFSH Medical History (Updated 11/09/23 @ 08:20 by Joe Tate PA-C) Allergic rhinitis Surgical History History of intravascular stent placement History of colonoscopy H/O wrist surgery History of tonsillectomy Family History Father Melanoma Mother Alzheimers disease Mental health disorder Social History Housing: House Alcohol intake: current Alcohol intake frequency: holidays/special occasions only Alcohol type: beer Patient Tobacco Use Status: Former Tobacco user Tobacco use type: Cigarette e-Cigarette/Vaping Use: Never Used Second Hand Smoke Exposure: No service: No Current occupational status: retired Cognitive needs: No Hearing needs: No Vision needs: Yes (reading glasses) Questionnaire PHQ-9 Over the last 2 weeks, how often have you been bothered by any of the following problems? 1. Little interest or pleasure in doing things: not at all 2. Feeling down, depressed, or hopeless: not at all 3. Trouble falling or staying asleep, or sleeping too much: not at all 4. Feeling tired or having little energy: not at all 5. Poor appetite or overeating: not at all 6. Feeling bad about yourself - or that you are a failure or have let yourself or your family down: not at all 7. Trouble concentrating on things, such as reading the newspaper or watching television: not at all 8. Moving or speaking so slowly that other people could have noticed. Or the opposite - being so fidgety or restless that you have been moving around a lot more than usual: not at all 9. Thoughts that you would be better off or of hurting yourself in some way: not at all Total score: 0 Depression Screening Interpretation: Negative Depression Screening Done: Yes 28064 - PHQ-9 Billing: Yes Source: Developed by Drs. Catracho Morrison, Yodit Hayden, Massimo Rosas and colleagues, with an educational ap from [employer]. Thrive Questionnaire Date Thrive assessed: 05/04/23 AUDIT C Alcohol Use Questionnaire (AUDIT-C) 1. How often do you have a drink containing alcohol?: Monthly or less 2. How many drinks containing alcohol do you have on a typical day when you are drinking?: 1 or 2 3. How often do you have six or more drinks on one occasion?: Never Total Score: 1 FELIPE-7 AMB Questionnaire FELIPE-7 Date FELIPE - 7 assessed: 05/04/23 Source: Developed by Drs. Catracho Morrison, Yodit Hayden, Massimo Rosas and colleagues, with an educational ap from [employer]. Review of Systems Const Denies body aches, Denies chills, Denies excessive sweating, Denies fatigue, Denies fever(s) and Denies headache(s) Eyes Denies blurry vision ENT Denies dysphagia, Denies vertigo, Denies dizziness, Denies headache(s), Denies hearing loss and Denies tinnitus Card Denies chest pain, Denies chest pain with activity, Denies syncope, Denies irregular heart rhythm and Denies dyspnea Resp Denies chest congestion, Denies cough, Denies hemoptysis, Denies dyspnea and Denies wheezing GI Denies abdominal pain, Denies melena, Denies hematochezia, Denies coffee ground emesis, Denies dysphagia, Denies diarrhea, Denies nausea and Denies vomiting Denies difficulty urinating, Denies dysuria, Denies urinary frequency, Denies urinary hesitancy and Denies urinary urgency Musc Denies arthralgias, Denies limited range of motion, Denies muscle cramps and Denies muscle weakness Skin/Breast Denies rash and Denies skin ulcer Neuro Denies Abnormal speech present, Denies confusion, Denies vertigo, Denies dizziness, Denies syncope, Denies headache(s), Denies memory loss and Denies seizure-like activity Psych Denies anxiety, Denies confusion, Denies depression, Denies memory loss, Denies panic attacks and Denies paranoia Endo Denies excessive sweating, Denies fatigue, Denies flushing, Denies polydipsia and Denies polyuria Aller/Immun Denies wheezing Physical exam (Primary Care) Vital Signs: Last Vital Signs Pulse 72 11/09/23 07:54 BP 138/78 11/09/23 07:54 Pulse Ox 98 11/09/23 07:54 Oxygen Delivery Method Room Air 11/09/23 07:54 BMI result Body Mass Index 26.0 Tobacco/Smoking Status: Tobacco use Status Tobacco use date assessed 05/04/23 11/09/23 08:00 Patient Tobacco Use Status Former Tobacco user 11/09/23 08:00 Tobacco use type Cigarette 11/09/23 08:00 e-Cigarette/Vaping Use Never Used 11/09/23 08:00 PHQ-9: PHQ-9 Score PHQ-9: Total score 0 11/09/23 08:00 Depression Screening Interpretation: Negative Thrive Assessment: Date of Thrive Assessment Date Thrive assessed 05/04/23 11/09/23 08:00 Const General: cooperative, comfortable, no acute distress, alert and awake; No confusion Orientation/consciousness: oriented to person, oriented to place, patient or iented x3 and No confusion HENMT Head: Yes normocephalic Ears: external ears normal and TM's normal bilaterally Face and sinus: No sinus tenderness Mouth: Normal oral and palatal mucosa present and tongue normal Teeth and gingiva: dentition normal and gingiva normal Throat: Yes posterior oropharynx normal, Yes tonsils normal and Yes uvula midline Eyes Conjunctivae: conjunctivae normal Sclerae: sclerae normal Pupils: Equal, round and reactive pupils present EOM: EOMs intact bilaterally Direct Ophthalmoscopy: No no photophobia Neck Neck: Yes no lymphadenopathy, No tender and Yes no JVD Thyroid: Thyroid normal Carotids: no bruits Chest Chest palpation & inspection: no tenderness Resp Effort & Inspection: normal respiratory effort, no audible wheezes, not labored and no stridor Auscultation: no crackles, no rales, no rhonchi and no wheezes Cardio Jugular venous distension: no JVD Rate: regular rate, not bradycardic and not tachycardic Rhythm: regular rhythm Bruits: no carotid bruits Peripheral pulses: Peripheral pulses 2+ throughout GI Inspection: Yes normal to inspection, No abdominal wall ecchymosis and No visible herniation Palpation (GI): Soft to palpation, nontender, no guarding, not rigid and No hepatosplenomegaly present Auscultation: normoactive bowel sounds General: Yes no CVA tenderness Back/Spine/Pelvis Back: no CVA tenderness and No back tenderness Cervical Spine: cervical ROM normal Thoracic/Lumbar Spine: thoracic and lumbar spine normal to inspection, straight leg raise negative bilaterally, No thoraco-lumbar ROM limited and No lumbar spinal tenderness Skin Lesions: no lesions Rashes: no rashes Wounds: no wounds Neuro General: oriented to person, oriented to place, patient oriented x3, CN's II-XI intact bilaterally and No confusion Cranial nerves: Yes Equal, round and reactive pupils present and Yes Normal accommodation reflex present Cognition (Neuro): normal cognition Speech: No Abnormal speech present Gait exam (Neuro): Normal gait present Motor exam (neuro): 5/5 motor strength present throughout Extrem Right upper extremity: full ROM; no cyanosis Left upper extremity: full ROM; no cyanosis Right lower extremity: no edema Left lower extremity: no edema Psych Appearance: grossly normal Mental Status: mental status grossly normal Affect: normal affect Attitude: cooperative Thought process: Normal thought process present Assessment and Plan Assessment & Plan (1) Annual physical exam: Code(s): Z00.00 - Encounter for general adult medical examination without abnormal findings (2) HTN (hypertension): Code(s): I10 - Essential (primary) hypertension Qualifiers: Hypertension type: essential hypertension Qualified Code(s): I10 - Essential (primary) hypertension Plan: Patient's blood pressure acceptable today in office. He was recently started on isosorbide by his wireless internet installer. Blood pressures at home have been fairly stable though on occasion gets higher readings. Will continue current dose of losartan with goal blood pressure remain below 140/90 (3) CAD (coronary artery disease): Code(s): I25.10 - Atherosclerotic heart disease of [place] coronary artery without angina pectoris Qualifiers: Coronary Disease-Associated Artery/Lesion type: [place] artery [place] vs. transplanted heart: [place] heart Associated angina: without angina Qualified Code(s): I25.10 - Atherosclerotic heart disease of [place] coronary artery without angina pectoris Plan: Patient continues to follow cardiology on annual basis. Most recent lipid panel showing excellent control over his total cholesterol and LDL. Goal LDL is to remain below 70 (4) FELIPE (generalized anxiety disorder): Code(s): F41.1 - Generalized anxiety disorder Plan: Patient continues on alprazolam and sertraline for his anxiety. He does still have some breakthrough anxiety, we did discuss the habit-forming nature of benzodiazepines and patient does understand the risk of continuing taking benzodiazepines and well into his 70s. He will try to continue weaning the daily dose (5) Impaired glucose metabolism: Code(s): R73.09 - Other abnormal glucose Plan: Most recent fasting blood sugar 114, A1c of 5.1. Advised on continuing low sugar and carbohydrate diet. Orders: Orders Microalbumin, Random (w Creat) Today I10 - Essential (primary) hypertension Lipid Panel Today I25.10 - Atherosclerotic heart disease of [place] coronary artery without angina pectoris Prostate Specific Antigen Scr Today I10 - Essential (primary) hypertension, Z12.5 - Encounter for screening for malignant neoplasm of prostate Comprehensive [place]. Panel Fast Today I25.10 - Atherosclerotic heart disease of [place] coronary artery without angina pectoris Complete Blood Count no Diff Today I25.10 - Atherosclerotic heart disease of [place] coronary artery without angina pectoris Patient Instructions: Goal: LDL to remain below 70, blood pressure remain below 140/90 Barriers: Adherence to physical activity and healthy eating habits Coding Level of Care Code Est Pt Prev Care >65y(65610) Diagnoses Annual physical exam Z00.00 Essential hypertension I10 Hypertension type: essential hypertension Coronary artery disease involving [place] coronary artery of [place] heart without angina pectoris I25.10 Coronary Disease-Associated Artery/Lesion type: [place] artery [place] vs. transplanted heart: [place] heart Associated angina: without angina FELIPE (generalized anxiety disorder) F41.1 Impaired glucose metabolism R73.09
== END 2023-11-09 08:20 | disposition home or self-care (01) ==
PROVIDERS: PCP Physician Assistant; Visit Provider Physician Assistant
DX: Z00.00 Encounter for general adult medical examination without abnormal findings (principal); I10 Essential (primary) hypertension; I25.10 Atherosclerotic heart disease of native coronary artery without angina pectoris; F41.1 Generalized anxiety disorder; R73.09 Other abnormal glucose
CPT/HCPCS: 99397

== ENCOUNTER 2024-04-20 08:23 | Outpatient (REF) | payer MEDICARE, SELFPAY ==
--- OUTSIDE RECORDS SUMMARY | 2024-04-20 08:28 | XMS_ITS | Clinical Summary ---
Author Organization [address] [facility] Address [address] [place] [address] Phone Care Team Providers Care Pricing Associate Name Role Phone Joe Tate Primary Care Provider [phone] Allergies No known active allergies Medications Medication Sig Dispensed Refills Start Date End Date Status ALPRAZolam (XANAX) 0.5 mg tablet Take 1 tablet (0.5 mg total) by mouth. Active aspirin 81 mg EC tablet Take 1 tablet (81 mg total) by mouth. Active cholecalciferol (VITAMIN D-3) 25 mcg (1,000 unit) tablet Take 2 tablets (2,000 Units total) by mouth. Active acetaminophen (TYLENOL) 500 mg tablet Take 2 tablets (1,000 mg total) by mouth every 6 (six) hours if needed. Active atorvastatin (LIPITOR) 80 mg tablet Take 1 tablet (80 mg total) by mouth 1 (one) time each day. 90 tablet 3 02/06/2024 Active losartan (COZAAR) 50 mg tablet Take 1 tablet (50 mg total) by mouth 1 (one) time each day. 90 tablet 3 02/06/2024 Active isosorbide mononitrate (IMDUR) 30 mg 24 hr tablet Take 2 tablets (60 mg total) by mouth 1 (one) time each day. Do not crush or chew. 180 each 3 02/06/2024 02/05/2025 Active nitroglycerin (NITROSTAT) 0.[address] 1 tablet (0.4 mg total) under the tongue every 5 (five) minutes if needed for chest pain. May repeat dose every 5 minutes for up to 3 doses total. 25 tablet 1 02/06/2024 Active Active Problems Problem Noted Date Diagnosed Date Throat clearing 06/13/2023 Overview (12/24/2023): Last Assessment & Plan: Experiencing throat clearing with exertion for 6 mo-1 year. Seen by PCP and prescribed albuterol and stress test ordered, it has not been scheduled yet. Patient denies anginal symptoms, and able to protect airway. - will order stress ECHO to evaluate for ischemia, and structural or valvular pathology. - will follow-up with patient with results BISHNU (obstructive sleep apnea) 03/17/2020 Hyperlipidemia 03/17/2020 Overview (12/24/2023): Last Assessment & Plan: Most recent LDL is 52 (within goal range of < 70 in pts with CAD) -Continue atorvastatin -Encouraged to follow low-fat diet Assessment & Plan (02/06/2024 3:47 PM EST): Continue high-dose statin. HTN (hypertension) 03/17/2020 Assessment & Plan (02/06/2024 3:47 PM EST): Good control on current meds, increasing Imdur as a trial for antianginal control. Continue current losartan. Orders: ECG 12 lead CAD (coronary artery disease) 03/17/2020 Overview (02/06/2024): -Presented to [facility] where Dr Vasquez saw him in consultation for a non-ST elevation AL in May 2018 -Status post cardiac cath on 05/29/2018 showing 90% mid LAD, mild to moderate disease in the first diagonal, 60% proximal circumflex, 90% distal RCA, 50% ostial RPDA-status post drug-eluting stents placed to the LAD and RCA, normal ejection fraction by ventriculogram -Echocardiogram most recently on 05/30/2018 showing preserved ejection fraction of 60 to 65% without regional wall motion abnormalities, normal RV size and systolic function, no significant valve disease -Started having recurrent anginal equivalent symptoms (I commented the strangest symptom I have ever heard of-hoarseness and low pitched, soft voice after strenuous activity going away with 5 to 10 minutes of rest) in spring 2023 -Exercise stress echocardiogram in June 2023-patient exercised for 6 minutes to 90% of max predicted heart rate without ischemic ECG changes or echocardiographic evidence of ischemia or infarction, resting echo showed preserved ejection fraction of 55 to 60% with normal regional wall motion -Responded extremely well to trial of low-dose Imdur Assessment & Plan (02/06/2024 3:47 PM EST): Patient has had good anginal control with improvement from CCS class II approximately the CCS class I. I reviewed a few options with the patient and his . We could continue with the current dose of Imdur with sublingual nitro as needed for breakthrough angina. I instructed him on the proper use. Alternatively, we could trial increasing the dose to 60 mg daily to see if this gives him additional benefit. I also offered to do a definitive diagnostic cardiac cath. He would like to hold off on invasive management which I think is completely reasonable. He will trial increased Imdur to 60 mg. He will cut back to 30 mg should he have any lightheadedness or worsening headache side effects that do not go away. At that point, his bias is to continue the 30 mg and use the sublingual nitro for breakthrough symptoms which I think is also very reasonable. He is already on maximally tolerated atorvastatin 80 mg at bedtime and aspirin for secondary prevention of cardiovascular events. I will plan to check in with him again in 6 months to reassess symptoms. I did give him a prescription for sublingual nitro and instructed him on the proper use either way. Orders: nitroglycerin (NITROSTAT) SL tablet 0.4 mg Encounters Date Type Department Care Team Description 02/06/2024 10:50 AM EST Office Visit [facility] [address] [place] [address] Ana Vasquez MD Coronary artery disease of [place] artery of [place] heart with stable angina pectoris (CMS/HCC) (Primary Dx); Hypertension, unspecified type; Mixed hyperlipidemia from Last 3 Months Family History Medical History Relation Name Comments Melanoma Father AT 36 Alzheimer's disease Mother Relation Name Status Comments Father Mother Social History Tobacco Use Types Packs/Day Years Used Date Smoking Tobacco: Former Cigarettes Smokeless Tobacco: Never Tobacco Cessation:Counseling Given: Not Answered Comments:Quit in his 40's Alcohol Use Standard Drinks/Week Comments Yes 0 (1 standard drink = 0.6 oz pur e alcohol) occasionally Sex and Gender Information Value Date Recorded Sex Assigned at Not on file Gender Identity Not on file Sexual Orientation Not on file Job Start Date Occupation Industry Not on file Not on file Not on file Obstetrics History Last Filed Vital Signs Vital Sign Reading Time Taken Comments Blood Pressure 138/90 02/06/2024 10:39 AM EST Pulse 87 02/06/2024 10:39 AM EST Temperature - - Respiratory Rate - - Oxygen Saturation 98% 02/06/2024 10:39 AM EST Inhaled Oxygen Concentration - - Weight 75.1 kg (165 lb 9.6 oz) 02/06/2024 10:39 AM EST Height 170.2 cm (5' 7 ) 02/06/2024 10:39 AM EST Body Mass Index 25.94 02/06/2024 10:39 AM EST Plan of Treatment Health Maintenance Due Date Last Done Comments RSV Immunization Patients 60+ Years Old (1 - Risk 60-74 years 1-dose series) 2009 Abdominal Aortic Aneurysm (AAA) Screen 02/27/2022 Cholesterol Screening (Lipid Panel) 02/27/2022 Colorectal Cancer Screening: Colonoscopy 02/27/2022 Depression Screening 02/27/2022 Falls Risk Assessment 02/27/2022 Hepatitis C Screening 02/27/2022 Medicare Annual Wellness Visit 02/27/2022 Social Influencers of Health Screening 02/27/2022 Hypertension/CHF/CAD Annual BMP Blood Test 02/28/2022 COVID-19 Vaccine ( season) 2023 03/26/2021, 06/18/2020, 05/21/2020 Influenza Vaccine (#1) 2023 2, 01/19/2021, 11/29/2019, Additional history exists DTaP,Tdap,and Td Vaccines (2 - Td or Tdap) 11/28/2028 11/28/2018 Zoster Vaccines Completed 02/28/2018, 11/19, 05/22/2012 Pneumococcal Vaccine: 65+ Years Completed 01/03/2019, 12/21/2017, 11/28/2017 HIB Vaccines Aged Out No longer eligi ble based on patient's age to complete this topic HPV Vaccines Aged Out No longer eligi ble based on patient's age to complete this topic Hepatitis A Vaccines Aged Out No long er eligible based on patient's age to complete this topic Hepatitis B Vaccines Aged Out No long er eligible based on patient's age to complete this topic IPV Vaccines Aged Out No longer eligi ble based on patient's age to complete this topic MMR Vaccines Aged Out No longer eligi ble based on patient's age to complete this topic Meningococcal ACWY Vaccine Aged Out N o longer eligible based on patient's age to complete this topic RSV Immunization Patients Under 20 months Aged Out No longer eligible based on patient's age to complete this topic Varicella Vaccines Aged Out No longer eligible based on patient's age to complete this topic Procedures Procedure Name Priority Date/Time Associated Diagnosis Comments ECG 12-LEAD Routine 02/06/2024 10:45 AM EST Hypertension, unspecified type from Last 3 Months Results * ECG 12 lead (02/06/2024 10:45 AM EST) Ventricular Rate ECG 87 BPM GEMUSE Atrial Rate 87 BPM GEMUSE P-R Interval 170 ms GEMUSE QRS Duration 82 ms GEMUSE Q-T Interval 380 ms GEMUSE QTc 457 ms GEMUSE P Wave [place] 35 degrees GEMUSE R [place] -41 degrees GEMUSE T [place] 38 degrees GEMUSE ECG Interpretation Normal sinus rhythm Left axis deviation Abnormal ECG No previous ECGs available Confirmed by ANA VASQUEZ ([id number]) on 02/06/2024 3:44:45 PM GEMUSE 02/06/2024 10:4 5 AM EST 02/06/2024 3:44 PM EST Ana Vasquez MD ECG ORDERABLES GEMUSE from Last 3 Months Care Teams Pricing Associate Relationship Specialty Start Date End Date Joe Tate PA [address] [place] [address] PCP - General Internal Medicine 03/03/20
[2024-04-20 10:50] LABS: Hematocrit 43.7 % (42.0-52.0); Hemoglobin 15.2 g/dl (14.0-18.0); Mean Corpuscular HGB Conc 34.8 g/dl (31.0-36.0); Mean Corpuscular Hemoglobin 31.1 pg (27.0-33.0); Mean Corpuscular Volume 89.4 fL (80.0-98.0); Mean Platelet Volume 9.6 fL (9.4-12.4); Platelet Count 204 X10*3/uL (160-400); Red Blood Count 4.89 X10*6/uL (4.60-5.80); Red Cell Distribution Width 12.9 % (11.0-16.0); White Blood Count 5.4 X10*3/uL (4.8-10.8)
[2024-04-20 11:25] LABS: Alanine Aminotransferase 21 U/L (0-40); Albumin Level 4.3 g/dL (3.5-5.0); Alkaline Phosphatase 94 U/L (39-117); Anion Gap 10 (12-20); Aspartate Amino Transferase 27 U/L (5-37); Blood Urea Nitrogen 17 mg/dL (9-16); Calcium 9.9 mg/dL (8.4-10.2); Carbon Dioxide 27 mmol/L (22-29); Chloride 108 mmol/L (96-108); Cholesterol 124 mg/dL (<200); Estimated Glomerular Filt Rate > 60; Glucose Fasting 102 mg/dL (60-99); HDL Cholesterol 53 mg/dL (>40); LDL Cholesterol Calculated 57 mg/dL (<100); Sodium 141 mmol/L (135-145); Total Protein 7.5 g/dL (6.5-8.0); Triglycerides 72 mg/dL (<150)
[2024-04-20 11:26] LABS: Creatinine Urine 209.81 mg/dL; Microalbum/Creatinine Ratio Ur 5.7 ug/mg cr (<30)
[2024-04-20 11:43] LABS: Prostate Specific Antigen Scr 0.28 ng/mL (<0.05-4.0)
== END 2024-04-20 08:24 | disposition home or self-care (01) ==
LOC: HO.HMGCLDS 08:23
PROVIDERS: PCP Physician Assistant; Visit Provider Physician Assistant
DX: I25.10 Atherosclerotic heart disease of native coronary artery without angina pectoris (principal); I10 Essential (primary) hypertension; Z12.5 Encounter for screening for malignant neoplasm of prostate
CPT/HCPCS: 36415; 80053; 80061; 82043; 82570; 84153; 85027

== ENCOUNTER 2024-05-16 07:35 | Outpatient (AMB) | payer MEDICARE, SELFPAY ==
--- OUTSIDE RECORDS SUMMARY | 2024-05-16 07:39 | XMS_ITS ---
Author Organization [facility] [address]ona in[address] [place] Address [address] [place] [address] Care Team Providers Care Bisque Grader Name Role Phone Joe Tate Primary Care Provider Unavailab Hilary Huerta Unavailable [phone] Allergies Allergen (clinical drug ingredient) Drug/Non Drug Allergy documented on EMR Reaction Allergy Type Onset Date Status Hayfever (uncoded) Unknown Allergy A ctive multiple environment al (uncoded) Unknown Allergy Active REASON FOR VISIT Foot pain Medications Medication SIG (Take, Route, Frequency, Duration) Notes Start Date End Date Status Baby Aspirin Active ALPRAZolam 0.5 MG (Schedule IV Drug) Oral for 30 Active Lisinopril 20 MG Oral for 90 N ot-Taking HYDROcodone-Acetaminoph en 7.5-325 MG (Schedule II Drug) Oral for 30 Not-Taking Baclofen 10 MG Oral for 30 Not -Taking Sertraline HCl 50 MG 1 tablet Orally Onc e a day Active Atorvastatin Calcium 80 MG 1 tablet Orally Once a day Active Vitamin D Active Tylenol Active Losartan Potassium 50 MG 1 tablet Orally Once a day Active Isosorbide Dinitrate 30 MG 1 tablet Orally Once a day Active Social History Tobacco Use: Social History Observation Description Date Details (start date - stop date) Former Smoker NA - NA Tobacco Use/Smoking Question Answer Notes Are you a: former smoker Additional Findings: Tobacco Non-User Current no n-smoker Alcohol Screen Question Answer Notes Did you have a drink contain ing alcohol in the past year? Yes How often did you have a dri nk containing alcohol in the past year? Monthly or less (1 point) Points 1 Interpretation Negative Tobacco use other than smoking: Question Answer Notes Are you an other tobacco user? No Vital Signs Height 5 ft 7in in 07/21/2023 Weight 160 lbs 07/21/2023 BMI 25.06 kg/m2 07/21/2023 Blood pressure systolic 127 mm Hg 07/21/19 24 Blood pressure diastolic 80 mm Hg 024 Encounters Encounter Location Date Provider Diagnosis [facility] [address] [place] [address] 07/21/2023 Hilary Black Pain in right foot M79.671 ; Metatarsalgia, right foot M77.41 ; Pain in right ankle and joints of right foot M25.571 ; Bursitis of intermetatarsal bursa of right foot M77.51 and Hammer toe of right foot M20.41 Assessments Encounter Date Diagnosis (ICD Code) Assessment Notes Treatment Notes Treatment Clinical Notes Section Notes 07/21/2023 Pain in right foot (ICD-10 - M79.671) 07/21/2023 Metatarsalgia, right foot (ICD-10 - M77.41) 07/21/2023 Pain in right ankle and joints of right foot (ICD-10 - M25.571) 07/21/2023 Bursitis of intermetatarsal bursa of right foot (ICD-10 - M77.51) 07/21/2023 Hammer toe of right foot (ICD-10 - M20.41) Plan Of Treatment Next Appt Details Follow Up: prn, Reason: Progress Notes * Aaron JACKSON MDOB:[birth year] (72 yo M)Acc No.[id number]:07/21/2023 Progress Notes Patient:?Aaron Jackson Provider:?Hilary Villanueva DPM :1950???Age:72 Y???Sex:Male Malachi e:07/21/2023 Address:[address] [place], [place] [id number] Pcp:Joe Tate Subjective: * Chief Complaints: * ???Foot pain * HPI: ???Foot Pain:?Location:?Bottom, Forefoot, RIGHT.?Duration:?, several weeks.?Course:?, improved , at 60 -70 %.?Aggrevated:?barefoot , walking.?Treatments:?rest/alter normal daily activity, back injections,pedag red.? * ROS:?General/Constitutional:?Nausea?denies.?Vomiting?denies.?Hunger Thirst?denies.?Loss appetite?denies.?Chills?denies.?Fatigue?denies.?Fever?denies.?Night Sweats?denies.?Unexplained weight loss?denies.?Unexplained weight gain?denies.?HEENTM:?Dentures?denies.?Dizziness?denies.?Glasses/contacts?admits.?Retinopathy?de nies.?Blurred/double vision?denies.?TMJ?denies.?Discharge/drainage?denies.?Implants?denies.?Sore throat?denies.?Dental implants?denies.?Hard of hearing ?denies.?Difficulty chewing/swallowing/speaking?denies.?Nose bleeds?denies.?Sore mouth?denies.?Respiratory:?On Oxygen?denies.?Pneumonia/pleurisy?denies.?Bronchitis?denies.?Emphysema?denies.?C oughing?denies.?Cough blood?denies.?Shortness of breath?denies.?Wheezing?denies.?Cardiovascular:?Pacemaker?denies.?MVP?denies.?WPW?denies.?CHF?denies.?Heart attack?admits.?Septal defect?denies.?Rapid beat?denies.?Chest pain ?admits.?Atrial Fib.?denies.?Murmur/Palpitations?denies.?Gastrointestinal:?Hemorrhoids?denies.?Stomach/Abdominal pain?denies.?Dark blood stool?denies.?Irritable bowel ?denies.?Constipation?denies.?Diarrhea?denies.?Hematology:?Swelling?denies.?Clots?denies.?Varicose Veins?denies.?Bruising?denies.?Bleeding problem?denies.?Genitourinary:?Blood urine?denies.?Frequent/Painfu/urination/bladder control?denies.?Kidney stones?denies.?Infection (UTI)?denies.?Nephropathy?denies.?sex trans dis (STD)?denies.?Prostate?denies.?Musculoskeletal:?Hammertoes?denies.?Bunions?denies.?Back Pain?admits.?Muscle Cramps/ Resting?denies.?Muscle cramps / walking?denies.?Generalized aches and pains?admits.?Weakness?denies.?Integ.:?Briones?denies.?Scars?denies.?Corns/calluses?denies.?Ingrown nails?denies.?Painful nails?denies.?Open Sores?denies.?Rashes?denies.?Neurologic:?Difficulty sleeping?denies.?Brain disorder?denies.?Numbness?denies.?Balance trouble?denies.?Confusion?denies.?Fainting/blackouts?denies.?Tingling?denies.?Tr emors?denies.? * Medical History:? * [place] [id number] Heart Stents 05/26/2017 * Hospitalization/Major Diagno stic Procedure:?Denies Past Hospitalization * Family History:?Mother: dece ased, foot problems, diagnosed with Family history of arthritis, Diabetic - NIDDM, Unspecified essential hypertension, Other malignant neoplasm of unspecified site.?Father: , diagnosed with Other malignant neoplasm of unspecified site.? * Social History:?Tobacco Use:?Tobacco Use/Smoking?Are you a:?former smoker ?Additional Findings: Tobacco Non-User?Current non-smoker ?Tobacco use other than smoking?Are you an other tobacco user??No ???Drugs/Alcohol:?Drugs?Have you used drugs other than those for medical reasons in the past 12 months??No ?Alcohol Screen?Did you have a drink containing alcohol in the past year??Yes ?How often did you have a drink containing alcohol in the past year??Monthly or less (1 point) ?Points?1 ?Interpretation?Negative ???Miscellaneous:?no Caffeine. ?Exercise: yes, Stationary Bike 3 Days a week. ?Marital status: . ?Occupation: Retired tool room attendant automotive alignment specialist. * Medications:?TakingIsosorbid e Dinitrate 30 MG Tablet 1 tablet Orally , Notes: Once a dayTylenol Vitamin D Atorvastatin Calcium 80 MG Tablet 1 tablet Orally Once a daySertraline HCl 50 MG Tablet 1 tablet Orally Once a dayLosartan Potassium 50 MG Tablet 1 tablet Orally Once a dayALPRAZolam 0.5 MG Tablet (Schedule IV Drug) Oral Baby Aspirin Taking Isosorbide Dinitrate 30 MG Tablet 1 tablet Orally , Notes: Once a dayTaking Tylenol Taking Vitamin D Taking Atorvastatin Calcium 80 MG Tablet 1 tablet Orally Once a dayTaking Sertraline HCl 50 MG Tablet 1 tablet Orally Once a dayTaking Losartan Potassium 50 MG Tablet 1 tablet Orally Once a dayTaking ALPRAZolam 0.5 MG Tablet (Schedule IV Drug) Oral Taking Baby Aspirin Not-Taking/PRNBaclofen 10 MG Tablet Oral HYDROcodone-Acetaminophen 7.5-325 MG Tablet (Schedule II Drug) Oral Lisinopril 20 MG Tablet Oral Medication List reviewed and reconciled with the patientNot-Taking/PRN Baclofen 10 MG Tablet Oral Not-Taking/PRN HYDROcodone-Acetaminophen 7.5-325 MG Tablet (Schedule II Drug) Oral Not- Taking/PRN Lisinopril 20 MG Tablet Oral Medication List reviewed and reconciled with the patient * Allergies:?Hayfevermultiple environmentalyes[Allergies Verified] Objective: * Vitals:?Ht: 5 ft 7in, Wt:160 , BMI:25.06, Shoe size:10.5, BP:127/80 mm Hg. * Examination: ???Orthopedic: ?MUSCLE STRENGTH:?5/5 all groups in a symmetrical fashion, B/L.?GAIT ABNORMALITY:?antalgic , Pronated , abducted angle and base of gate.?DIGITAL DEFORMITIES:?Digital contracture, PIPJ, 2-5 B/L, incompl-reducible with WB, or to push-up test, no over, nor underlapping.?MPJ PATHOLOGY:? Pain, swelling, and inflammation to plantar 3, 4MPJ(s), RIGHT, No MPJ pain with ROM, [ - ] Ecchymosis, States approximately? 60-70% LESS.?Neuroma Pain: ?PALPATION:?Pain with direct palpation of the intermetatarsal space , no Pain with lateral compression of metatarsals , negative Sasha's click , 3rd interspace , RIGHT.? Assessment: * Assessment: 1.?Metatarsalgia, right foot - M77.41 (Primary), Acute problem, Complicated w/ Multiple Tx Options(4)?2.?Pain in right foot - M79.671?3.?Pain in right ankle and joints of right foot - M25.571?4.?Bursitis of intermetatarsal bursa of right foot - M77.51?5.?Hammer toe of right foot - M20.41? Plan: * Treatment: * Procedure Codes:? * Preventive Medicine:? ??Counseling:?Discussion:?-14: Office or other outpatient visit for the evaluation and management of an established patient, which required a medically appropriate history and/or examination and MODERATE level of DECISION MAKING for: 1 OR MORE CHRONIC PROBLEM(S) THATS WORSENING, 2 STABLE CHRONIC PROBLEMS, A NEWLY DIAGNOSED PROBLEM WITH UNCERTAIN PROGNOSIS, AN ACUTE COMPLICATED INJURY WITH MULTIPLE TREATMENT OPTIONS, OR AN ACUTE PROBLEM WITH ACCOMPANYING SYSTEMIC SYMPTOMS, THAT POSE(S) A MODERATE RISK OF MORBIDITY. THIS CONDITION MAY ALSO INCLUDE RX DRUG MANAGEMENT, OR A DECISON FOR MINOR SURGERY. The visit on the day of the encounter encompassed interpreting the data and educating the patient as to the nature of their condition, treatment options available according to their individual PMH, meds, allergies, and overall health/living conditions, as well as any potential risks or complications that may occur from a failure to adhere to, and participate in, the recommended course of therapy. The discussion included a complete verbal, and/or written explanation of the examination results, any x-rays taken, the proposed diagnosis, and outline of the treatment plan. A schedule for future care needs was also explained. The patient verbalized an understanding of the instructions at this time and agreed to be an active participant in their treatment. If the patient should think of any questions or concerns after the visit, I have encouraged the patient to call the office.?Steriod Injection:?I explained that a steroid and local anesthetic injections are administered to relieve pain and inflammation and thereby meant to improve function. I explained the possible complications including but not limited to signs/symptoms of steroid flare, infection, bruising, atrophy, discoloration of skin, change/deviation in toe position, and that additional injections may be necessary, cortisone post-injection informative educational handout was dispensed to and reviewed with the patient, Pt defers injection today.?Treatment:?The plan is to treat this patient with conservative and restorative nonsurgical treatment to help alleviate the patient's symptomatology by utilizing some or all of the standard podiatric medical care - e.g.- palliation, orthotics, injections, physical therapy and the use of padding and strapping.Short term goals: Our plan is to decrease pain and inflammation, to improve ambulation, to allow the patient to return to normal activities and work, and to prevent further disability.snf goals: Our plan is for the patient to resume normal foot function, be weight bearing, and to prevent surgical intervention. We will reevaluate the patients progress as needed until symptoms complex subsides or is resolved.? * Follow Up:?prn * Images: * Sign off status: Completed true * Provider:?Hilary Villanueva DPM Date:?2023 Generated for Latasha alejandra/Dre/eTransmitting on:?05/16/2024 07:39 AM EST History and Physical Notes * HPI (History of Present Illness) Category Sub-Category Detail Notes Category Not es Foot Pain Location: Bottom, Forefoot, RIGHT Duration: , several weeks Course: , improved , at 60 - 70 % Aggravated: barefoot , walking Treatments: rest/alter normal da lalit activity, back injections,pedag red Examination Category Sub-Category Detail Notes Category Not es Neuroma Pain PALPATION: Pain with direct palpation of the intermetatarsal space , no Pain with lateral compression of metatarsals , negative Sasha's click , 3rd interspace , RIGHT Orthopedic GAIT ABNORMALITY: antalgic , Pro nated , abducted angle and base of gate DIGITAL DEFORMITIES: Digital contracture , PIPJ, 2-5 B/L, incompl-reducible with WB, or to push-up test, no over, nor underlapping MPJ PATHOLOGY: Pain, swelling, and inflammation to plantar 3, 4MPJ(s), RIGHT, No MPJ pain with ROM, [ - ] Ecchymosis, States approximately 60-70% LESS MUSCLE STRENGTH: 5/5 all groups in a symmetrical fashion, B/L
--- OUTSIDE RECORDS SUMMARY | 2024-05-16 07:39 | XMS_ITS | Patient Health Record ---
Author Organization [facility] Address [address] [facility] [place] [address] Care Team Providers Care Harness Brusher Name Role Phone Joe Tate Primary Care Provider Unavailab Hilary Huerta Unavailable [phone] Allergies Allergen (clinical drug ingredient) Drug/Non Drug Allergy documented on EMR Reaction Allergy Type Onset Date Status Hayfever (uncoded) Unknown Allergy A ctive multiple environment al (uncoded) Unknown Allergy Active Results Component Value Reference Range Notes X ray : Foot, right 3V Reviewed date:05/26/2023 10:39:55 AM Interpretation:See Examination above Performing Lab: Notes/Report: See Examination above Reason For Referral No Information Medications Medication SIG (Take, Route, Frequency, Duration) Notes Start Date End Date Status Sertraline HCl 50 MG 1 tablet Orally Onc e a day Active Atorvastatin Calcium 80 MG 1 tablet Orally Once a day Active Vitamin D Active Tylenol Active Baby Aspirin Active ALPRAZolam 0.5 MG (Schedule IV Drug) Oral for 30 Active Losartan Potassium 50 MG 1 tablet Orally Once a day Active Isosorbide Dinitrate 30 MG 1 tablet Orally Once a day Active Lisinopril 20 MG Oral for 90 N ot-Taking HYDROcodone-Acetaminoph en 7.5-325 MG (Schedule II Drug) Oral for 30 Not-Taking Baclofen 10 MG Oral for 30 Not -Taking Social History Tobacco Use: Social History Observation [...] Are you an other tobacco user? No Problems Problem Type SNOMED Code ICD Code Onset Dates Problem Status W/U Status Risk Notes Problem 956432942 Hammer toe of right foot (M20.41) Active confirmed Vital Signs Blood pressure diastolic 80 mm Hg 07/21/2023 Height 5 ft 7in in 07/21/2023 Blood pressure systolic 127 mm Hg 07/21/2023 Weight 160 lbs 07/21/2023 BMI 25.06 kg/m2 07/21/2023 Encounters Encounter Location Date Provider Diagnosis [address] [address] 05/26/2023 Hilary Black Pain in right foot M79.671 ; Metatarsalgia, right foot M77.41 ; Pain in right ankle and joints of right foot M25.571 ; Bursitis of intermetatarsal bursa of right foot M77.51 and Hammer toe of right foot M20.[address] [address] 07/21/2023 Hilary Black Pain in right foot M79.671 ; Metatarsalgia, right foot M77.41 ; Pain in right ankle and joints of right foot M25.571 ; Bursitis of intermetatarsal bursa of right foot M77.51 and Hammer toe of right foot M20.[address] [address] 05/26/2023 Hilary Black [address] [address] 06/27/2023 Hilary Black [address] [address] 11/07/2023 Hilary Black Assessments Encounter Date Diagnosis (ICD Code) Assessment Notes Treatment Notes Treatment Clinical Notes Section Notes 05/26/2023 Metatarsalgia, right foot (ICD-10 - M77.41) 05/26/2023 Pain in right foot (ICD-10 - M79.671) 07/21/2023 Metatarsalgia, right foot (ICD-10 - M77.41) 07/21/2023 Pain in right foot (ICD-10 - M79.671) 07/21/2023 Pain in right ankle and joints of right foot (ICD-10 - M25.571) 05/26/2023 Pain in right ankle and joints of right foot (ICD-10 - M25.571) 05/26/2023 Bursitis of intermetatarsal bursa of right foot (ICD-10 - M77.51) 07/21/2023 Bursitis of intermetatarsal bursa of right foot (ICD-10 - M77.51) 07/21/2023 Hammer toe of right foot (ICD-10 - M20.41) 05/26/2023 Hammer toe of right foot (ICD-10 - M20.41) Plan Of Treatment No Information Insurance Providers Payer Name Payer Address Payer Phone Subscriber Number Group Number Insured Name Patient Relationship to Insured Coverage Start Date Coverage End Date [employer] [address] [place] [address] [phone] [id number] Aaron Bae i Self - patient is the insured Medical (General) History Medical History History ICD Code Anxiety Back,Hip,and Knee pain Broken bones High blood pressure Measles Chicken pox CAD (Cholesterol) covid-19 Heart disease Sciatica Surgical History Surgery Date(Month/Year) left wrist fx 1965 2 Heart Stents 05/26/2017
--- OUTSIDE RECORDS SUMMARY | 2024-05-16 07:39 | XMS_ITS ---
Author Organization [facility] [place] in[place] [place] Address [address] [place] [address] Care Team Providers Care Plasterer Maintenance Name Role Phone Joe Tate Primary Care Provider Unavailab Hilary Huerta [phone] Encounters Encounter Location Date Provider Diagnosis [facility] [address] [place] [address] 11/28/2023 Hilary Villanueva Plan Of Treatment No Information Progress Notes * Aaron JACKSON MDOB:[birth year] (73 yo M)Acc No.[id number]:11/28/2023 Progress Note Patient:?Aaron JACKSON Provider:Harshal Villanueva DPM :1950???Age:73 Y???Sex:Male Malachi e:11/28/2023 Address:[address] [place], [place] [address] Pcp:Joe Tate Subjective: * Chief Complaints: * ??? * Medical History:? Objective: * Vitals:? Assessment: Plan: * Treatment: * Images: * The named appointment provid er may or may not be the originator of this progress note, and it is not deemed complete until electronically signed by the appointment provider. Sign off status: Pending * Provider:?Hilary Villanueva DPM Date:?2023 Generated for Peteri justyn/Fayasirg/eTransmitting on:?05/16/2024 07:38 AM EST
--- OUTSIDE RECORDS SUMMARY | 2024-05-16 07:39 | XMS_ITS | Clinical Summary ---
Author Organization [facility] Address [address] [place] [address] Phone Care Team Providers Care Professional Employer Consultant Name Role Phone Joe Tate Primary Care Provider Allergies No known active allergies Medications ALPRAZolam (XANAX) 0.5 mg tablet Take 1 [...] crush or chew. 180 each 3 02/06/2024 02/06/20 25 Active nitroglycerin (NITROSTAT) 0.4 mg SL tablet [...] artery disease) 03/17/2020 Overview (02/06/2024): -Presented to [facility] where Dr Marcano saw him in consultation for a non-ST elevation RI in May 2018 -Status post cardiac cath [...] Orders: nitroglycerin (NITROSTAT) SL tablet 0.4 mg Family History Medical History Relation Name Comments [...] Recorded Sex Assigned at Not on file Legal Sex Male 10:45 AM EST Gender Identity Not on file Sexual Orientation Not on file Obstetrics History Last Filed [...] 02/06/2024 10:39 AM EST Plan of Treatment Upcoming Encounters Date Type Department Care Team (Late st Contact Info) Description 08/08/2024 10:40 AM EDT Office Visit [facility] [address] [facility] [address] [place] [address] Adryan Mcdaniel NP [address] [place], [place] [id number] Health Maintenance Due Date Last Done Comments [...] 03/26/2021, 06/18/2020, 05/21/2020 Influenza Vaccine (#1) 2023 , 01/19/2021, 11/29/2019, Additional history exists DTaP,Tdap,and Td Vaccines (2 - Td or Tdap) 11/28/2028 11/28/2018 Zoster Vaccines Completed 02/28/2018, 11/19, 05/22/2012 Pneumococcal Vaccine: 50+ Years Completed 01/03/2019, 12/21/2017, 11/28/2017 HIB Vaccines [...] patient's age to complete this topic Meningococcal B Vacine Aged Out No lo nger eligible based on patient's age to complete this topic RSV Immunization Patients Under 20 months Aged Out No longer eligible based on patient's age to complete this topic Varicella Vaccines Aged Out No longer eligible based on patient's age to complete this topic Insurance [employer] Care Teams Professional Employer Consultant Relationship Specialty Start Date End Date Joe Tate PA PCP - General Internal Medicine 03/03/20
--- OUTSIDE RECORDS SUMMARY | 2024-05-16 07:39 | XMS_ITS ---
Author Organization [facility] Address [address] [place] [address] Care Team Providers Care Stapler Hand Name Role Phone Joe Tate Primary Care Provider Unavailab Hilary Huerta Unavailable [phone] REASON FOR VISIT Cancel Encounters Encounter Location Date Provider Diagnosis [facility] [address] [place] [address] 11/07/2023 Hilary Black Plan Of Treatment No Information Progress Notes * Aaron SHARIF MDOB:[birth year] (72 yo M)Acc No.[id number]:11/07/2023 Patient:?Aaron Sharif :1950???Age:72 Y???Sex:Male Address:[address] [place] [address], [address] * true * Date:? Generated for Printi ng/Fayasirg/eTransmitting on:?05/16/2024 07:38 AM EST
[2024-05-16 07:43] VITALS: BP 140/72; PULSE 65; O2SAT 97; BMI 26.3
--- NOTE | 2024-05-16 07:43 | MHC.PC.OV ---
Vital Signs 05/16/24 07:43 Height 5 ft 7 in Weight 168 lb BMI 26.3 BP 140/72 H Blood Pressure Location Lt brachial Position Sitting Pulse 65 Pulse Source Pulse Oximeter Pulse Oximetry (%) 97 Oxygen Delivery Method Room Air Intake Visit Reasons: f/u CAD/ HTN/ Anxiety Allergies No Known Allergies Allergy (Verified 05/16/24 08:02) Medication List - Last Reconciled 05/16/24 by Joe Tate PA-C albuterol sulfate 90 mcg/actuation 1 inh inhalation QID PRN 30 days alprazolam 0.5 mg PO Q8H 30 days aspirin 81 mg PO DAILY atorvastatin 80 mg PO DAILY 90 days cholecalciferol (vitamin D3) 25 mcg PO DAILY fexofenadine (Celia Allergy) 180 mg PO DAILY 90 days fluticasone propionate 50 mcg/actuation (Flonase Allergy Relief) 1 spray intranasal DAILY 30 days isosorbide mononitrate ER 60 mg PO DAILY losartan 50 mg PO DAILY nitroglycerin (Nitrostat) 0.4 mg sublingual Q5M PRN sertraline 50 mg PO DAILY 90 days Tobacco use date assessed: 05/16/24 Fall risk assessment: No Falls in past year Last assessed Fall Risk: 05/16/24 Dental Screening Dental Screen Date: 05/16/24 Did you have a dental visit in the last 12 months?: Yes Did you have a dental problem in the last 6 months where you did not have access to dental care?: No Was dental information given to patient?: Patient has dentist HPI f/u CAD/ HTN/ Anxiety HPI Details Patient is a 73-year-old male here today for follow-up visit ? Patient has a past medical history significant for hypertension, coronary artery disease with history of stent placement, impaired glucose metabolism, generalized anxiety disorder. ? . ? 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 ? Most recent lipid panel showing excellent control of his LDL. He does report over last several months noting some shortness of breath and weakness in his voice after physical activity. -- * unclear if this is a side effect of his benzodiazepine He underwent echocardiogram and EKG, and stress testing without any significant abnormalities. His isosorbide was recently increased and he was prescribed nitro to use as needed. ? .. ? HTN: Today's blood pressure slightly elevated today in office. He? denies any chest discomfort, shortness of breath, vision issues or headaches.? At home readings are 120s and 130 systolic. ? .. ? FELIPE: He reports he has been reducing the amount of alprazolam he is using.. Patient declines my offers to see therapist and psychiatrist at this time.? He has tried hydroxyzine though felt he had side effect in did not help to reduce his anxiety. Has been on Zoloft 50 mg to which he reports he does feel a difference in the severity of his anxiety.? He has been reducing his alprazolam dosing to b.i.d. at times. Again had a long conversation about weaning his dose of Xanax and patient does somewhat understand this.? Patient does have benzodiazepine dependence and he understands this. He is willing to slowly wean his dose as tolerated. [facility] Medical History Allergic rhinitis Surgical History History of intravascular stent placement History of colonoscopy H/O wrist surgery History of tonsillectomy Family History Father Melanoma Mother Alzheimers disease Mental health disorder Social History Housing: House Alcohol intake: current Alcohol intake frequency: holidays/special occasions only Alcohol type: beer Patient Tobacco Use Status: Former Tobacco user Tobacco use type: Cigarette e-Cigarette/Vaping Use: Never Used Second Hand Smoke Exposure: No service: No Current occupational status: retired Cognitive needs: No Hearing needs: No Vision needs: Yes (reading glasses) Questionnaire PHQ-9 Over the last 2 weeks, how often have you been bothered by any of the following problems? 1. Little interest or pleasure in doing things: not at all 2. Feeling down, depressed, or hopeless: not at all 3. Trouble falling or staying asleep, or sleeping too much: not at all 4. Feeling tired or having little energy: not at all 5. Poor appetite or overeating: not at all 6. Feeling bad about yourself - or that you are a failure or have let yourself or your family down: not at all 7. Trouble concentrating on things, such as reading the newspaper or watching television: not at all 8. Moving or speaking so slowly that other people could have noticed. Or the opposite - being so fidgety or restless that you have been moving around a lot more than usual: not at all 9. Thoughts that you would be better off or of hurting yourself in some way: not at all Total score: 0 Depression Screening Interpretation: Negative Depression Screening Done: Yes 63663 - PHQ-9 Billing: Yes Source: Developed by Drs. Catracho Morrison, Yodit Hayden, Massimo Rosas and colleagues, with an educational ap from [employer]. Thrive Questionnaire Date Thrive assessed: 05/16/24 I am a: Patient What is your living situation today?: I have a steady place to live Within the past 12 months, did the food you bought not last and you didn't have the money to get more?: Never true Within the past 12 months, did you worry whether your food would run out before you got money to buy more?: Never true Do you have trouble paying for medicines?: No Do you have trouble getting transportation to medical appointments?: No Do you have trouble paying your heating and electricity bill?: No Do you have trouble taking care of your child, family member or friend?: No Do you have trouble with day-to-day activities such as bathing, preparing meals, shopping, managing finances, etc.?: No Are you currently unemployed and looking for a job?: No Are you interested in more education?: No Currently or been in a relationship where the following occur: No concerns reported THRIVE Score: 0 AUDIT C Alcohol Use Questionnaire (AUDIT-C) 2. How many drinks containing alcohol do you have on a typical day when you are drinking?: 1 or 2 3. How often do you have six or more drinks on one occasion?: Never Total Score: 0 FELIPE-7 AMB Questionnaire FELIPE-7 Date FELIPE - 7 assessed: 05/16/24 Feeling nervous, anxious, or on edge: 0 = Not at all Not being able to stop or control worryin = Not at all Worrying too much about different things: 0 = Not at all Trouble relaxin = Not at all Being so restless that it is hard to sit still: 0 = Not at all Becoming easily annoyed or irritable: 0 = Not at all Feeling afraid as if something awful might happen: 0 = Not at all Total FELIPE-7 score (0-4 normal; 5-9 mild; 10-14 moderate; 15-21 severe): 0 Source: Developed by Drs. Catracho Morrison, Yodit Hayden, Massimo Rosas and colleagues, with an educational ap from [employer]. FELIPE-7 Assessment Billing FELIPE-7 Assessment Tool: FELIPE-7 Assessment 05118 Review of Systems Const Denies headache(s) Eyes Denies loss of vision ENT Denies vertigo, Denies dizziness, Denies headache(s) and Denies sore throat Card Denies chest pain, Denies leg edema and Denies lightheadedness Resp Denies cough, Denies hemoptysis and Denies wheezing GI Denies abdominal pain, Denies melena, Denies constipation, Denies diarrhea and Denies vomiting Denies dysuria, Denies urinary frequency and Denies urinary urgency Musc Denies arthralgias, Denies joint swelling, Denies numbness and Denies tingling Neuro Denies Abnormal speech present, Denies behavioral changes, Denies vertigo, Denies dizziness, Denies headache(s), Denies loss of vision, Denies memory loss, Denies numbness and Denies tingling Psych Denies anxiety, Denies behavioral changes, Denies depression, Denies memory loss and Denies panic attacks Mahin/Lymph Denies easy bleeding and Denies easy bruising Aller/Immun Denies wheezing Physical exam (Primary Care) Vital Signs: Last Vital Signs Pulse 65 05/16/24 07:43 BP 140/72 H 05/16/24 07:43 Pulse Ox 97 05/16/24 07:43 Oxygen Delivery Method Room Air 05/16/24 07:43 BMI result Body Mass Index 26.3 Tobacco/Smoking Status: Tobacco use Status Tobacco use date assessed 05/16/24 05/16/24 07:45 Patient Tobacco Use Status Former Tobacco user 05/16/24 07:45 Tobacco use type Cigarette 05/16/24 07:45 e-Cigarette/Vaping Use Never Used 05/16/24 07:45 PHQ-9: PHQ-9 Score PHQ-9: Total score 0 05/16/24 07:45 Depression Screening Interpretation: Negative Thrive Assessment: Date of Thrive Assessment Date Thrive assessed 05/16/24 05/16/24 07:45 Currently or been in a relationship where the following occur: No concerns reported Const General: healthy appearing, no acute distress, alert and awake Nutritional Appearance: well nourished Orientation/consciousness: oriented to person, oriented to place and oriented to time HENMT Ears: TM's normal bilaterally General nose exam: Normal nasal mucous membranes and turbinates present Eyes Conjunctivae: conjunctivae normal Sclerae: sclerae normal Pupils: Equal, round and reactive pupils present Neck Neck: Yes no lymphadenopathy and Yes no JVD Thyroid: Thyroid normal Carotids: no bruits Resp Effort & Inspection: normal respiratory effort and not tachypneic Auscultation: no crackles, no rales, no rhonchi and no wheezes Cardio Rate: regular rate Rhythm: regular rhythm Heart sounds: no murmurs and normal S1 and S2 GI Palpation (GI): Soft to palpation, nontender, no hepatomegaly and no splenomegaly Auscultation: normal bowel sounds Skin General skin exam: no rashes or lesions noted and dry skin Neuro General: oriented to person, oriented to place and oriented to time Cranial nerves: Yes Equal, round and reactive pupils present Speech: No Abnormal speech present Gait exam (Neuro): Normal gait present Motor exam (neuro): no tremor noted Extrem Right upper extremity: full ROM Left upper extremity: full ROM Right lower extremity: full ROM; no edema Left lower extremity: full ROM; no edema Psych Mental Status: mental status grossly normal Speech and movement: Normal speech and movement present Affect: normal affect Attitude: cooperative Thought process: Normal thought process present Coding Level of Care Code Est Pt Level 4 (54299) Diagnoses FELIPE (generalized anxiety disorder) F41.1 Coronary artery disease involving elem coronary artery of elem heart without angina pectoris I25.10 Coronary Disease-Associated Artery/Lesion type: elem artery [place] vs. transplanted heart: elem heart Associated angina: without angina Essential hypertension I10 Hypertension type: essential hypertension Additional Codes FELIPE-7 Assessment Billing - FELIPE-7 Assessment Tool: FELIPE-7 Assessment 64429 ([id number]) PHQ-9 - 16865 - PHQ-9 Billing: Yes ([id number]) Assessment & Plan Assessment & Plan (1) FELIPE (generalized anxiety disorder): Code(s): F41.1 - Generalized anxiety disorder Category: Medical Plan: Reports having a lot of stress at recently due to his 's health. Had a long discussion about the habit-forming nature Xanax and he does understand though feels that he is physically dependent on the medication. I explained to him I was willing to work with him on weaning down to a single dose the alprazolam per day the next several months. (2) CAD (coronary artery disease): Code(s): I25.10 - Atherosclerotic heart disease of elem coronary artery without angina pectoris Category: Medical Qualifiers: Coronary Disease-Associated Artery/Lesion type: elem artery [place] vs. transplanted heart: elem heart Associated angina: without angina Qualified Code(s): I25.10 - Atherosclerotic heart disease of elem coronary artery without angina pectoris Plan: Continues on his current blood pressure medications and aspirin, is followed by Cardiology. Recently increased his isosorbide dose to 60 mg, was given nitro to use as needed. He does report intermittently having a weakening in his voice though is unclear if this is related to a cardiac concerned. Most recent EKG normal. we did discuss the possibility of the weakening in his voice (dysarthria) could be related to benzodiazepine effect. Denies any recent chest discomfort, palpitations, shortness of breath. (3) HTN (hypertension): Code(s): I10 - Essential (primary) hypertension Category: Medical Qualifiers: Hypertension type: essential hypertension Qualified Code(s): I10 - Essential (primary) hypertension Plan: Patient blood pressure generally well controlled. Does monitor his blood pressure at home and generally gets 120s to 130 systolic. Today's blood pressure slightly elevated in office. Goal blood pressures to be below 140/90. Orders: Orders Lipid Panel Today I25.10 - Atherosclerotic heart disease of elem coronary artery without angina pectoris Hemoglobin A1c Today R73.09 - Other abnormal glucose Comprehensive [place]. Panel Fast Today R73.09 - Other abnormal glucose Complete Blood Count no Diff Today R73.09 - Other abnormal glucose Medications: Refilled alprazolam 0.5 mg PO Q8H 30 days 90 tabs 3RF F41.1 - Generalized anxiety disorder sertraline 50 mg PO DAILY 90 days 90 tabs 2RF F41.1 - Generalized anxiety disorder Patient Instructions: Goal: Blood pressure to remain below 140/90, LDL optimally below 70 Barriers: Adherence to physical activity and healthy eating habits
== END 2024-05-16 08:17 | disposition home or self-care (01) ==
PROVIDERS: PCP Physician Assistant; Visit Provider Physician Assistant
DX: F41.1 Generalized anxiety disorder (principal); I25.10 Atherosclerotic heart disease of native coronary artery without angina pectoris; I10 Essential (primary) hypertension

== ENCOUNTER → 2024-05-16 07:35 | Outpatient (BNVA) | payer MEDICARE, SELFPAY | PROVIDERS: PCP Physician Assistant; Visit Provider Physician Assistant | DX: F41.1 Generalized anxiety disorder (principal); I25.10 Atherosclerotic heart disease of native coronary artery without angina pectoris; I10 Essential (primary) hypertension | CPT/HCPCS: 96127; 99212 ==

== ENCOUNTER 2024-08-20 10:22 | Outpatient (REF) | payer MEDICARE, SELFPAY ==
--- NOTE | ~2024-08-20 | US_ITS ---
CLINICAL HISTORY: R10.84 - Generalized abdominal pain US abdomen complete. COMPARISON: None Technique: Real time sonographic imaging, including color-flow imaging, was performed by the harness worker. Multiple hr representative static images were saved for review. FINDINGS: Mild atherosclerotic plaque present along the abdominal aorta. The visualized portions of the pancreas appear normal. The liver has normal echotexture. Anechoic hepatic cyst within the right lobe measuring 4.5 x 3.4 x 2.9 cm. Liver, right lobe size: 13.9 cm, normal. The gallbladder is normal in size. No cholelithiasis or sludge identified. There is a negative sonographic Murray's sign. Gallbladder wall: 2 mm, normal. Common bile duct: 4 mm, normal. Right kidney: Cortical medullary differentiation is maintained. Normal color flow by Doppler. Nonobstructing calculus at the lower pole measuring 0.5 x 0.3 x 0.3 cm No hydronephrosis. Right kidney length: 11.6 cm Left kidney: Cortical medullary differentiation is maintained. Normal color flow by Doppler. Anechoic simple cyst of the inferior pole measuring 1.2 x 1.1 x 1.2 cm. No hydronephrosis. Left kidney length: 11.1 cm The spleen has normal echogenicity. Splenic length: 10.7 cm, normal. No free intraperitoneal fluid identified. IMPRESSION: 1. No evidence of cholecystitis. No evidence of renal obstruction. 2. Nonobstructing right renal calculus measuring 0.5 cm. 3. Simple hepatic cyst within the right lobe measuring up to 4.5 cm. 4. Simple left renal cyst measuring 1.2 cm. This document has been electronically signed by: Andrés England MD on 08/20/2024 16:11:46
--- OUTSIDE RECORDS SUMMARY | 2024-08-20 11:21 | XMS_ITS | Clinical Summary ---
Author Organization [address] [place] [address] Address [address] [place] [address] Phone Care Team Providers Care Quality Assurance Supervisor Final Name Role Phone Joe Tate Primary Care [...] (one) time each day. 90 tablet 3 4 Active isosorbide mononitrate (IMDUR) 30 mg 24 hr tablet Take 2 tablets (60 mg total) by mouth 1 (one) time each day. Do not crush or chew. 180 each 3 4 02/06/20 25 Active nitroglycerin (NITROSTAT) 0.[address] 1 tablet (0.4 mg total) under the tongue every 5 (five) minutes if needed for chest pain. May repeat dose every 5 minutes for up to 3 doses total. 25 tablet 1 4 Active losartan (COZAAR) 100 mg tablet Take 1 tablet (100 mg total) by mouth 1 (one) time each day. 90 tablet 1 5 Active losartan (COZAAR) 50 mg tablet Take 1 tablet (50 mg total) by mouth 1 (one) time each day. 90 tablet 3 4 08/09/19 Discontinu ed(Formula ry change) losartan (COZAAR) 100 mg tablet Take 1 tablet (100 mg total) by mouth 1 (one) time each day. 08/09/19 Discontinu ed(Reorder ) Active Problems Problem Noted Date Diagnosed Date [...] to follow low-fat diet Assessment & Plan (08/08/2024 11:03 AM EDT): And is using high-dose atorvastatin 80 mg p.o. daily. Would like him to adhere to a cardiac healthy diet. I do not have his most recent lipid panel, will contact [facility] to obtain this. Would like patient's LDL to be 70 or below. Assessment & Plan (02/06/2024 3:47 PM EST): Continue high-dose statin. HTN (hypertension) 03/17/2020 Assessment & Plan (08/08/2024 11:03 AM EDT): Well-controlled. Continue on current medication regimen which includes losartan 100 mg p.o. daily, and isosorbide mononitrate 30 mg daily. Assessment & Plan (02/06/2024 3:47 PM EST): Good control on current meds, increasing Imdur as a trial for antianginal control. Continue current losartan. Orders: ECG 12 lead CAD (coronary artery disease) 03/17/2020 Overview (02/06/2024): -Presented to [facility] where Dr Marcano saw him in consultation for a non-ST elevation [place] in May 2018 -Status post cardiac cath [...] trial of low-dose Imdur Assessment & Plan (08/08/2024 11:03 AM EDT): No new anginal symptoms at the appointment today. Continue with the baby aspirin, high-dose atorvastatin 80 mg p.o. daily, and isosorbide 30 mg p.o. daily. Patient not on beta-kimmie, has history of low resting heart rates. Orders: ECG 12 lead Assessment & Plan (02/06/2024 3:47 PM EST): [...] Encounters Date Type Department Care Team Description 08/08/2024 10:40 AM EDT Office Visit [facility] [address] [facility] [address] [place] [address] Adryan Mcdaniel NP Coronary artery disease involving [place] coronary artery of [place] heart with other form of angina pectoris (CMS/HCC V24) (Primary Dx); Mixed hyperlipidemia; Hypertension, unspecified type from Last 3 Months Family History Medical [...] Sign Reading Time Taken Comments Blood Pressure 130/80 08/08/2024 10:25 AM EDT Pulse 50 08/08/2024 10:25 AM EDT Temperature - - Respiratory Rate - - Oxygen Saturation 98% 08/08/2024 10:25 AM EDT Inhaled Oxygen Concentration - - Weight 73.9 kg (163 lb) 08/08/2024 10:25 AM EDT Height 170.2 cm (5' 7 ) 08/08/2024 10:25 AM EDT Body Mass Index 25.53 08/08/2024 10:25 AM EDT Plan of Treatment Upcoming Encounters Date Type Department Care Team (Late st Contact Info) Description 03/06/2025 8:40 AM EST Office Visit [facility] [address] [facility] [address] [place] [address] Adryan Mcdaniel NP [address] [place] [address] Health Maintenance Due Date Last Done Comments Abdominal Aortic Aneurysm (AAA) Screen 02/27/2022 Cholesterol Screening (Lipid Panel) 02/27/2022 Colorectal Cancer Screening: Colonoscopy 02/27/2022 Depression Screening 02/27/2022 Falls Risk Assessment 02/27/2022 Hepatitis C Screening 02/27/2022 Medicare Annual Wellness Visit 02/27/2022 Social Influencers of Health Screening 02/27/2022 Hypertension/CHF/CAD Annual BMP Blood Test 02/28/2022 COVID-19 Vaccine ( season) 2023 03/26/2021, 06/18/2020, 05/21/2020 RSV Immunization Adult Patients (1 - 1-dose 75+ series) 2024 Influenza Vaccine (Season Ended) 2024 01/18/2022, 01/19/2021, 11/29/2019, Additional history exists DTaP,Tdap,and Td [...] age to complete this topic Meningococcal B Vaccine Aged Out No l onger eligible based on patient's age to complete this topic RSV Immunization Patients Under 20 months Aged Out No longer eligible based on patient's age to complete this topic Varicella Vaccines Aged Out No longer eligible based on patient's age to complete this topic Procedures Procedure Name Priority Date/Time Associated Diagnosis Comments ECG 12-LEAD Routine 08/08/2024 10:57 AM EDT Coronary artery disease involving [place] coronary artery of [place] heart with other form of angina pectoris (CMS/[facility] V24) from Last 3 Months Results * ECG 12 lead (08/08/2024 10:57 AM EDT) 08/08/2024 10:3 2 AM EDT Adryan Mcdaniel NP ECG ORDERABLES Final Result GEMUSE from Last 3 Months Insurance [employer] Care Teams Quality Assurance Supervisor Final Relationship Specialty Start Date End Date Joe Tate PA PCP - General Physician Jack Frame Tender 08/02/24
== END 2024-08-20 10:23 | disposition home or self-care (01) ==
LOC: HO.HMGCX 10:22
PROVIDERS: PCP Physician Assistant; Visit Provider Physician Assistant
DX: R10.84 Generalized abdominal pain (principal); R63.4 Abnormal weight loss
CPT/HCPCS: 76700

== ENCOUNTER → 2024-08-20 10:30 | Outpatient (BNV) | payer MEDICARE, SELFPAY | PROVIDERS: PCP Physician Assistant; Visit Provider Radiology Diagnostic Radiology | DX: N20.0 Calculus of kidney (principal); N28.1 Cyst of kidney, acquired; K76.89 Other specified diseases of liver | CPT/HCPCS: 76700 ==

== ENCOUNTER 2024-10-12 07:00 | Outpatient (REF) | payer MEDICARE, SELFPAY ==
--- OUTSIDE RECORDS SUMMARY | 2024-10-12 07:03 | XMS_ITS | Patient Health Record ---
Author Organization [facility] Address [address] [facility] [place] [address] Care Team Providers Care Supervisor Seaming Name Role Phone Joe Tate Primary Care Provider Unavailab Hilary Huerta Unavailable [phone] Allergies Allergen (clinical drug ingredient) Drug/Non Drug Allergy documented on EMR Reaction Allergy Type Onset Date Status Hayfever (uncoded) Unknown Allergy A ctive multiple environment al (uncoded) Unknown Allergy Active Reason For Referral No Information Medications Medication SIG (Take, Route, Frequency, Duration) Notes Start Date End Date Status Sertraline HCl 50 MG 1 tablet Orally Onc e a day Active Atorvastatin Calcium 80 MG 1 tablet Orally Once a day Active Vitamin D Active Tylenol Active Baby Aspirin Active ALPRAZolam 0.5 MG (Schedule IV Drug) Oral; Duration: 30 Active Losartan Potassium 50 MG 1 tablet Orally Once a day Active Isosorbide Dinitrate 30 MG 1 tablet Orally Once a day Active Lisinopril 20 MG Oral; Duration: 90 Not-Taking HYDROcodone-Acetaminoph en 7.5-325 MG (Schedule II Drug) Oral; Duration: 30 Not-Taking Baclofen 10 MG Oral; Duration: 30 Not-Taking Social History Tobacco Use: Social History Observation [...] Problem Status W/U Status Risk Notes Problem Acquired hammer toe of right foot ([id number] 105) Hammer toe of right foot (M20.41) Active confirmed Encounters Encounter Location Date Provider Diagnosis [facility] [address] [place] [address] 11/07/2023 Hilary Black Plan Of Treatment No Information Insurance Providers Payer Name Payer Address Payer Phone Subscriber Number Group Number Insured Name Patient Relationship to Insured Coverage Start Date Coverage End Date [employer] [place] [employer] [address] [place] [address] [id number] Aaron Bae i Self - patient is the insured Medical (General) History Medical History History ICD Code Anxiety Back,Hip,and Knee pain Broken bones High blood pressure Measles Chicken pox CAD (Cholesterol) covid-19 Heart disease Sciatica Surgical History Surgery Date(Month/Year) left wrist fx 1965 2 Heart Stents 05/26/2017
--- OUTSIDE RECORDS SUMMARY | 2024-10-12 07:03 | XMS_ITS | Clinical Summary ---
Author Organization [facility] Address [address] [place] [phone] Phone Care Team Providers Care Lawn Mower Sharpener Name Role Phone Joe Tate Primary Care Provider + Allergies No known active allergies Medications atorvastatin (LIPITOR) 80 MG tablet Take 80 mg by mouth daily. Active aspirin 81 MG EC tablet Take 81 mg by mouth daily. Active cholecalciferol (VITAMIN D3) 2,000 unit tablet Take 2,000 Units by mouth daily. Active ALPRAZolam (XANAX) 0.5 MG tablet Take 0.5 mg by mouth as needed for anxiety. Active losartan (COZAAR) 25 MG tablet Take 50 mg by mouth daily. 09/14/2021 Active sertraline (ZOLOFT) 50 MG tablet Take 50 mg by mouth daily. 09/08/2021 Active cholecalciferol (VITAMIN D3) 2,000 unit capsule 03/21/2021 Active ALLERGY RELIEF, FEXOFENADINE, 180 mg tablet Take 180 mg by mouth daily as needed. 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 30 yea rs ago Education Answer Date Recorded Are you interested in more education? Not on kyara e 07/16/2022 Are you concerned about learning? Not on file 07/16/2022 No 07/16/2022 No 07/16/2022 Digital Access Answer Date Recorded No 08/14/2022 No 08/14/2022 No 08/14/2022 Reliable internet access at home? Not on file 08/14/2022 Device with a working camera? Not on file Sex and Gender Information Value Date Recorded Sex Assigned at Not on file Legal Sex Male 3:25 PM EDT Gender Identity Not on file Sexual Orientation Not on file Last Filed Vital Signs Vital Sign Reading Time Taken Comments Blood Pressure 140/82 12/26/2019 9:51 AM EDT Pulse - - Temperature 36.1 C (97 F) 01/17/2020 9:36 AM EDT Respiratory Rate - - Oxygen Saturation - - Inhaled Oxygen Concentration - - Weight 73.5 kg (162 lb) 12/26/2019 9:51 AM EDT w ith shoes Height 170.1 cm (5' 6.97 ) 12/26/2019 9:51 AM ED T with shoes Body Mass Index 25.4 12/26/2019 9:51 AM EDT Plan of Treatment Health Maintenance Due Date Last Done Comments CREATININE LEVEL 1949 LIPID PANEL 1949 POTASSIUM LEVEL 1949 DEPRESSION SCREENING 1961 SMOKING Hx and SMOKELESS TOBACCO SCREENING 1962 HEPATITIS C SCREENING 11/14/1967 COLOGUARD 1994 COLONOSCOPY 1994 COLORECTAL CANCER SCREENING 1994 FIT TEST 1994 FOBT 1994 SIGMOIDOSCOPY 1994 VIRTUAL COLONOSCOPY 1994 ABDOMINAL AORTIC ANEURYSM (AAA) SCREENING 2014 COVID-19 VACCINE (2 - 2023-2 5 season) 2023 05/21/2020 RSV VACCINE (1 - 1-dose 75+ series) 2024 Adult Td,Tdap Booster 11/28/2028 11/28/2018 ZOSTER VACCINES Completed 02/28/2018, 11/30/2017, 05/22/2012 PNEUMOCOCCAL VACCINES (50+ years) Completed 01/03/2019, 12/21/2017, 11/28/2017 HEPATITIS A VACCINES Aged Out No long er eligible based on patient's age to complete this topic HIB VACCINES Aged Out No longer eligi ble based on patient's age to complete this topic MENINGOCOCCAL VACCINES (ACWY) Aged Out No longer eligible based on patient's age to complete this topic MENINGOCOCCAL VACCINES (B) Aged Out N o longer eligible based on patient's age to complete this topic Medical Devices Not on file Insurance [employer] MEDIC[employer] HMO [place] [address] [address] [address] [place] [place] [address] MEDICARE HMO REPLACEMENT [employer] [place] [employer] H[employer] REPLACEMENT [employer] [place] [employer] H[employer] REPLACEMENT [employer] [place] MEDIC[employer] HMO [place] [place] [address] MEDICARE HMO REPLACEMENT [employer] [place] MEDICARE HMO [place] [place] [address] MEDICARE HMO REPLACEMENT Care Teams Lawn Mower Sharpener Relationship Specialty Start Date End Date Joe Tate PA [address] [place] [id number] PCP - General 12/12/19 Additional Source Comments The information contained in this document represents components of the legal health record. It is not the complete legal health record.[facility]
--- OUTSIDE RECORDS SUMMARY | 2024-10-12 07:03 | XMS_ITS | Clinical Summary ---
Author Organization [address] [place] [address] Address [address] [place] [address] Phone Care Team Providers Care Hedis Manager Name Role Phone Joe Tate Primary Care [...] doses total. 25 tablet 1 02/06/2024 Active losartan (COZAAR) 100 mg tablet Take 1 tablet (100 mg total) by mouth 1 (one) time each day. 90 tablet 1 08/08/2024 Active Active Problems Problem Noted Date Diagnosed [...] his most recent lipid panel, will contact [facility] to obtain this. Would like patient's [...] artery disease) 03/17/2020 Overview (02/06/2024): -Presented to [facility] where Dr Vasquez saw him in consultation for a non-ST elevation MD in May 2018 -Status post cardiac cath [...] Description 08/08/2024 10:40 AM EDT Office Visit [facility] [address] [facility] [address] [place] [id number] Adryan Mcdaniel NP Coronary artery disease involving [place] coronary artery of [place] heart with other form of angina pectoris (CMS/FORMERLY [facility] V24) (Primary Dx); Mixed hyperlipidemia; Hypertension, unspecified [...] Description 03/06/2025 8:40 AM EST Office Visit [facility] [address] [facility] [address] [place] [phone] Adryan Mcdaniel, JAGDISH [address] [place] [address] Health Maintenance Due Date Last Done Comments Abdominal Aortic Aneurysm (AAA) Screen 02/27/2022 Cholesterol Screening (Lipid Panel) 02/27/2022 Colorectal Cancer Screening: Colonoscopy 02/27/2022 Falls Risk Assessment 02/27/2022 Hepatitis C Screening 02/27/2022 Medicare Annual Wellness Visit 02/27/2022 Social Influencers of Health Screening 02/27/2022 Hypertension/CHF/CAD Annual BMP Blood Test 02/28/2022 COVID-19 Vaccine ( season) 2023 03/26/2021, 06/18/2020, 05/21/2020 Depression Screening 03/21/2024 RSV Immunization Adult Patients (1 - 1-dose 75+ series) 2024 Influenza Vaccine (#1) 2024 2, 01/19/2021, 11/29/2019, Additional history exists DTaP,Tdap,and [...] 10:57 AM EDT Coronary artery disease involving [place] coronary artery of [place] heart with other form of angina pectoris ([facility]/FORM[facility] V24) from Last 3 Months Results * ECG 12 lead (08/08/2024 10:57 AM EDT) Ventricular Rate ECG 50 BPM GEMUSE Atrial Rate 50 BPM GEMUSE P-R Interval 188 ms GEMUSE QRS Duration 90 ms GEMUSE Q-T Interval 468 ms GEMUSE QTc 426 ms GEMUSE P Wave [place] 50 degrees GEMUSE R [place] 6 degrees GEMUSE T [place] 48 degrees GEMUSE ECG Interpretation Sinus bradycardia Otherwise normal ECG When compared with ECG of 06-FEB-2024 10:45, Vent. rate has decreased BY 37 BPM Confirmed by VISHNU VASQUEZ ([id number]) on 09/07/2024 4:01:31 PM GEMUSE 08/08/2024 10:3 2 AM EDT 09/07/2024 4:01 PM EDT Adryan Mcdaniel NP ECG ORDERABLES Edited Result - Final GEMUSE from Last 3 Months Insurance [facility] MEDICARE ADVANTAGE Care Teams Hedis Manager Relationship Specialty Start Date End Date Joe Tate PA PCP - General Physician Transportation Worker 08/02/24
[2024-10-12 10:20] LABS: Hematocrit 43.9 % (42.0-52.0); Hemoglobin 15.3 g/dl (14.0-18.0); Mean Corpuscular HGB Conc 34.9 g/dl (31.0-36.0); Mean Corpuscular Hemoglobin 30.8 pg (27.0-33.0); Mean Corpuscular Volume 88.5 fL (80.0-98.0); NRBC Abs Auto 0.000 X10*3/uL (0.0-0.012); NRBC Pct Auto 0.0 /100WBC (0.0-0.2); Platelet Count 205 X10*3/uL (160-400); Red Blood Count 4.96 X10*6/uL (4.60-5.80); White Blood Count 4.9 X10*3/uL (4.8-10.8)
[2024-10-12 10:31] LABS: Hemoglobin A1C 138.9357 umol/L; Total Hemoglobin (HGBA1C) 3973.5328 umol/L
[2024-10-12 10:54] LABS: Alanine Aminotransferase 21 U/L (0-40); Albumin Level 4.6 g/dL (3.5-5.0); Alkaline Phosphatase 115 U/L (39-117); Anion Gap 12 (12-20); Aspartate Amino Transferase 33 U/L (5-37); Blood Urea Nitrogen 16 mg/dL (9-16); Calcium 9.3 mg/dL (8.4-10.2); Carbon Dioxide 28 mmol/L (22-29); Chloride 106 mmol/L (96-108); Cholesterol 118 mg/dL (<200); Estimated Glomerular Filt Rate > 60; HDL Cholesterol 50 mg/dL (>40); Potassium 4.0 mmol/L (3.3-5.1); Sodium 142 mmol/L (135-145); Total Protein 7.1 g/dL (6.5-8.0); Triglycerides 110 mg/dL (<150)
== END 2024-10-12 07:01 | disposition home or self-care (01) ==
LOC: HO.HMGCLDS 07:00
PROVIDERS: PCP Physician Assistant; Visit Provider Physician Assistant
DX: I25.10 Atherosclerotic heart disease of native coronary artery without angina pectoris (principal); R73.09 Other abnormal glucose
CPT/HCPCS: 36415; 80053; 80061; 83036; 85027

== ENCOUNTER 2024-11-13 07:31 | Outpatient (AMB) | payer MEDICARE, SELFPAY ==
--- OUTSIDE RECORDS SUMMARY | 2023-11-28 09:30 | XMS_ITS ---
Author Organization [facility] [place] Address [address] [place] [address] Care Team Providers Care Singe Machine Operator Name Role Phone Joe Tate Primary Care Provider Unavailab Hilary Huerta [phone] Encounters Encounter Location Date Provider Diagnosis [facility] [address] [place] [address] 11/28/2023 Hilary Villanueva Plan Of Treatment No Information Progress Notes * Aaron JACKSON MDOB:[birth year] (74 yo M)Acc No.[id number]:11/28/2023 Progress Note Patient: Annie Aaron MOSLEY Provider: Priscilla Villanueva DPM :1950 A ge:73 Y S ex:Male Date:11/28/2023 Address:[address] [place] [address] Pcp:Joe Tate Subjective: * Chief Complaints: * * Medical History: Objective: * Vitals: Assessment: Plan: * Treatment: * Images: * The named appointment provid er may or may not be the originator of this progress note, and it is not deemed complete until electronically signed by the appointment provider. Sign off status: Pending * Provider: Priscilla Villanueva DPM Date: 11/28/2023 Generated for Printi ng/Faxing/eTransmitting on: 2024 07:34 AM EDT
--- OUTSIDE RECORDS SUMMARY | 2024-11-13 07:34 | XMS_ITS | Patient Health Record ---
Author Organization [facility] Address [address] [facility] [place] [address] Care Team Providers Care Manager Helpdesk Name Role Phone Joe Tate Primary Care Provider Unavailab Hilary Huerta Unavailable [phone] Allergies Allergen (clinical drug ingredient) Drug/Non Drug [...] Problem Status W/U Status Risk Notes Problem Hammer toe of right foot (M20.41) Active confirmed Plan Of Treatment No Information Insurance Providers Payer Name Payer Address Payer Phone Subscriber Number Group Number Insured Name Patient Relationship to Insured Coverage Start Date Coverage End Date [employer] [place] Medicare Advantage [facility] [address] [facility] [id number] Aaron Bae i Self - patient is the insured Medical (General) History Medical History History ICD Code Anxiety Back,Hip,and Knee pain Broken bones High blood pressure Measles Chicken pox CAD (Cholesterol) covid-19 Heart disease Sciatica Surgical History Surgery Date(Month/Year) left wrist fx 1965 2 Heart Stents 05/26/2017
--- OUTSIDE RECORDS SUMMARY | 2024-11-13 07:35 | XMS_ITS | Clinical Summary ---
Author Organization [facility] Address [address] [place] [phone] Phone Care Team Providers Care Wafer Mounter Name Role Phone Joe Tate Primary Care [...] Insurance [employer] MEDIC[employer] HMO [place] [address] [place] [address] [address] [place] [place] [place] [address] MEDICARE HMO REPLACEMENT [employer] [place] MED[employer] HMO REPLACEMENT [employer] [place] MED[employer] HMO REPLACEMENT [employer] [place] MEDIC[employer] HMO [place] [place] [address] MEDICARE HMO REPLACEMENT [employer] [place] MEDICARE [place] [place] [address] MEDICARE HMO REPLACEMENT Care Teams Wafer Mounter Relationship Specialty Start Date End Date Joe Taet PA [address] [place] [phone] PCP - General 12/12/19 Additional Source Comments The information contained in this document represents components of the legal health record. It is not the complete legal health record.[facility]
--- OUTSIDE RECORDS SUMMARY | 2024-11-13 07:35 | XMS_ITS | Clinical Summary ---
Author Organization [address] [place] [address] Address [address] [place] [address] Phone Care Team Providers Care Flue Tile Press Operator Name Role Phone Joe Tate Primary [...] his most recent lipid panel, will contact [facility] to obtain this. Would like patient's [...] artery disease) 03/17/2020 Overview (02/06/2024): -Presented to [facility] where Dr Marcano saw him in consultation for a non-ST elevation [place] in May 2018 -Status post cardiac cath [...] Description 03/06/2025 8:40 AM EST Office Visit [facility] [address] [facility] [address] [place] [phone] Adryan Mcdaniel NP [address] [place], [place] [phone] Health Maintenance Due Date Last Done Comments [...] [employer] AD[employer] Care Teams Flue Tile Press Operator Relationship Specialty Start Date End Date Joe Tate PA PCP - General Physician Math And Science Instructor 08/02/24
[2024-11-13 07:43] VITALS: BP 122/78; PULSE 81; O2SAT 97; BMI 24.7
--- NOTE | 2024-11-13 07:43 | A.OFFPC_ITS ---
Vital Signs 11/13/24 07:43 Height 5 ft 7 in Weight 158 lb BMI 24.7 BP 122/78 Blood Pressure Location Lt brachial Position Sitting Pulse 81 Pulse Source Pulse Oximeter Pulse Oximetry (%) 97 Oxygen Delivery Method Room Air Intake Visit Reasons: Annual Exam Allergies No Known Allergies Allergy (Verified 11/13/24 08:01) Medication List - Last Reconciled 11/13/24 by Joe Tate PA-C albuterol sulfate 90 mcg/actuation 1 inh inhalation QID PRN 30 days alprazolam 0.5 mg PO Q8H 30 days aspirin 81 mg PO DAILY atorvastatin 80 mg PO DAILY 90 days cholecalciferol (vitamin D3) 25 mcg PO DAILY fexofenadine (Celia Allergy) 180 mg PO DAILY 90 days fluticasone propionate 50 mcg/actuation (Flonase Allergy Relief) 1 spray intranasal DAILY 30 days isosorbide mononitrate ER 60 mg PO DAILY losartan 50 mg PO DAILY nitroglycerin (Nitrostat) 0.4 mg sublingual Q5M PRN sertraline 50 mg PO DAILY 90 days Tobacco use date assessed: 05/16/24 Fall risk assessment: No Falls in past year Last assessed Fall Risk: 11/13/24 Dental Screening Dental Screen Date: 05/16/24 HPI Annual Exam HPI Details Patient is a 74-year-old male here today for routine annual physical ? Patient has a past medical history significant for hypertension, coronary artery disease with history of stent placement, impaired glucose metabolism, generalized anxiety disorder. ? . ? CAD: Is followed by communications program manager , had an MD in May of 2019. ? Most recent lipid panel showing excellent control of his LDL. Regularly gets echocardiogram and EKG, and stress testing without any significant abnormalities. His isosorbide was recently increased and he was prescribed nitro to use as needed. ? .. ? HTN: Today's blood pressure acceptable today in office He? denies any chest discomfort, shortness of breath, vision issues or headaches.? At home readings are 120s and 130 systolic. ? .. ? FELIPE: He reports he has been reducing the amount of alprazolam he is using.. Patient declines my offers to see therapist and psychiatrist at this time.? He has tried hydroxyzine though felt he had side effect in did not help to reduce his anxiety. Has been on Zoloft 50 mg to which he reports he does feel a difference in the severity of his anxiety.? He has been reducing his alprazolam dosing to b.i.d. at times. Again had a long conversation about weaning his dose of Xanax and patient does somewhat understand this.? Patient does have benzodiazepine dependence and he understands this. He is willing to slowly wean his dose as tolerated. Vaccines: Up-to-date with COVID, flu, shingles, pneumonia and tetanus vaccines Colon cancer screening: Colonoscopy done 2023 normal repeat 10 years Laboratory Tests 10/05/23 04/20/24 04/20/24 08:15 08: 08:28 RBC 4.89 Creatinine Fasting Glucose 107 H 102 H Hemoglobin A1c % LDL Cholesterol, C alc 54 57 PSA Screen 0.28 Urine Microalbumin 04/20/24 10/12/24 08:30 07:03 RBC 4.96 Creatinine 0.91 Fasting Glucose 103 H Hemoglobin A1c % 5.4 LDL Cholesterol, C alc 46 PSA Screen Urine Microalbumin 12.0 PFSH Medical History Allergic rhinitis Surgical History History of intravascular stent placement History of colonoscopy H/O wrist surgery History of tonsillectomy Family History Father Melanoma Mother Alzheimers disease Mental health disorder Social History Housing: House Alcohol intake: current Alcohol intake frequency: holidays/special occasions only Alcohol type: beer Patient Tobacco Use Status: Former Tobacco user Tobacco use type: Cigarette e-Cigarette/Vaping Use: Never Used Second Hand Smoke Exposure: No service: No Current occupational status: retired Cognitive needs: No Hearing needs: No Vision needs: Yes (reading glasses) Questionnaire PHQ-9 Over the last 2 weeks, how often have you been bothered by any of the following problems? 1. Little interest or pleasure in doing things: not at all 2. Feeling down, depressed, or hopeless: not at all 3. Trouble falling or staying asleep, or sleeping too much: not at all 4. Feeling tired or having little energy: not at all 5. Poor appetite or overeating: not at all 6. Feeling bad about yourself - or that you are a failure or have let yourself or your family down: not at all 7. Trouble concentrating on things, such as reading the newspaper or watching television: not at all 8. Moving or speaking so slowly that other people could have noticed. Or the opposite - being so fidgety or restless that you have been moving around a lot more than usual: not at all 9. Thoughts that you would be better off or of hurting yourself in some way: not at all Total score: 0 Depression Screening Interpretation: Negative Depression Screening Done: Yes 66276 - PHQ-9 Billing: Yes Source: Developed by Drs. Catracho Morrison, Yodit Haydne, Massimo Rosas and colleagues, with an educational ap from [employer]. Thrive Questionnaire Date Thrive assessed: 11/13/24 I am a: Patient What is your living situation today?: I have a steady place to live Within the past 12 months, did the food you bought not last and you didn't have the money to get more?: I choose not to answer this question Within the past 12 months, did you worry whether your food would run out before you got money to buy more?: I choose not to answer this question Do you have trouble paying for medicines?: No Do you have trouble getting transportation to medical appointments?: No Do you have trouble paying your heating and electricity bill?: No Do you have trouble taking care of your child, family member or friend?: I choose not to answer this question Do you have trouble with day-to-day activities such as bathing, preparing meals, shopping, managing finances, etc.?: No Are you currently unemployed and looking for a job?: I choose not to answer this question Are you interested in more education?: No Please select the resources that you would like help with: None Currently or been in a relationship where the following occur: I choose not to answer THRIVE Score: 0 AUDIT C Alcohol Use Questionnaire (AUDIT-C) 1. How often do you have a drink containing alcohol?: Monthly or less 2. How many drinks containing alcohol do you have on a typical day when you are drinking?: 3 or 4 3. How often do you have six or more drinks on one occasion?: Never Total Score: 2 FELIPE-7 AMB Questionnaire FELIPE-7 Date FELIPE - 7 assessed: 11/13/24 Feeling nervous, anxious, or on edge: 1 = Several days Not being able to stop or control worryin = Not at all Worrying too much about different things: 0 = Not at all Trouble relaxin = Not at all Being so restless that it is hard to sit still: 0 = Not at all Becoming easily annoyed or irritable: 0 = Not at all Feeling afraid as if something awful might happen: 0 = Not at all Total FELIPE-7 score (0-4 normal; 5-9 mild; 10-14 moderate; 15-21 severe): 1 Source: Developed by Drs. Catracho Morrison, Yodit Hayden, Massimo Rosas and colleagues, with an educational ap from [employer]. FELIPE-7 Assessment Billing FELIPE-7 Assessment Tool: FELIPE-7 Assessment 66354 Review of Systems Const Denies body aches, Denies chills, Denies excessive sweating, Denies fatigue, Denies fever(s) and Denies headache(s) Eyes Denies blurry vision ENT Denies dysphagia, Denies vertigo, Denies dizziness, Denies headache(s), Denies hearing loss and Denies tinnitus Card Denies chest pain, Denies chest pain with activity, Denies syncope, Denies irregular heart rhythm and Denies dyspnea Resp Denies chest congestion, Denies cough, Denies hemoptysis, Denies dyspnea and Denies wheezing GI Denies abdominal pain, Denies melena, Denies hematochezia, Denies coffee ground emesis, Denies dysphagia, Denies diarrhea, Denies nausea and Denies vomiting Denies difficulty urinating, Denies dysuria, Denies urinary frequency, Denies urinary hesitancy and Denies urinary urgency Musc Denies arthralgias, Denies limited range of motion, Denies muscle cramps and Denies muscle weakness Skin/Breast Denies rash and Denies skin ulcer Neuro Denies Abnormal speech present, Denies confusion, Denies vertigo, Denies dizziness, Denies syncope, Denies headache(s), Denies memory loss and Denies seizure-like activity Psych Denies anxiety, Denies confusion, Denies depression, Denies memory loss, Denies panic attacks and Denies paranoia Endo Denies excessive sweating, Denies fatigue, Denies flushing, Denies polydipsia and Denies polyuria Aller/Immun Denies wheezing Physical exam (Primary Care) Vital Signs: Last Vital Signs Pulse 81 11/13/24 07:43 BP 122/78 11/13/24 07:43 Pulse Ox 97 11/13/24 07:43 Oxygen Delivery Method Room Air 11/13/24 07:43 BMI result Body Mass Index 24.7 Tobacco/Smoking Status: Tobacco use Status Tobacco use date assessed 05/16/24 11/13/24 07:43 Patient Tobacco Use Status Former Tobacco user 11/13/24 07:43 Tobacco use type Cigarette 11/13/24 07:43 e-Cigarette/Vaping Use Never Used 11/13/24 07:43 PHQ-9: PHQ-9 Score PHQ-9: Total score 0 11/13/24 07:51 Depression Screening Interpretation: Negative Thrive Assessment: Date of Thrive Assessment Date Thrive assessed 11/13/24 11/13/24 07:51 Currently or been in a relationship where the following occur: I choose not to answer Const General: cooperative, comfortable, no acute distress, alert and awake; No confusion Orientation/consciousness: oriented to person, oriented to place, patient oriented x3 and No confusion HENMT Head: Yes normocephalic Ears: external ears normal and TM's normal bilaterally Face and sinus: No sinus tenderness Mouth: Normal oral and palatal mucosa present and tongue normal Teeth and gingiva: dentition normal and gingiva normal Throat: Yes posterior oropharynx normal, Yes tonsils normal and Yes uvula midline Eyes Conjunctivae: conjunctivae normal Sclerae: sclerae normal Pupils: Equal, round and reactive pupils present EOM: EOMs intact bilaterally Direct Ophthalmoscopy: No no photophobia Neck Neck: Yes no lymphadenopathy, No tender and Yes no JVD Thyroid: Thyroid normal Carotids: no bruits Chest Chest palpation & inspection: no tenderness Resp Effort & Inspection: normal respiratory effort, no audible wheezes, not labored and no stridor Auscultation: no crackles, no rales, no rhonchi and no wheezes Cardio Jugular venous distension: no JVD Rate: regular rate, not bradycardic and not tachycardic Rhythm: regular rhythm Bruits: no carotid bruits Peripheral pulses: Peripheral pulses 2+ throughout GI Inspection: Yes normal to inspection, No abdominal wall ecchymosis and No visible herniation Palpation (GI): Soft to palpation, nontender, no guarding, not rigid and No hepatosplenomegaly present Auscultation: normoactive bowel sounds General: Yes no CVA tenderness Back/Spine/Pelvis Back: no CVA tenderness and No back tenderness Cervical Spine: cervical ROM normal Thoracic/Lumbar Spine: thoracic and lumbar spine normal to inspection, straight leg raise negative bilaterally, No thoraco-lumbar ROM limited and No lumbar spinal tenderness Skin Lesions: no lesions Rashes: no rashes Wounds: no wounds Neuro General: oriented to person, oriented to place, patient oriented x3, CN's II-XI intact bilaterally and No confusion Cranial nerves: Yes Equal, round and reactive pupils present and Yes Normal accommodation reflex present Cognition (Neuro): normal cognition Speech: No Abnormal speech present Gait exam (Neuro): Normal gait present Motor exam (neuro): 5/5 motor strength present throughout Extrem Right upper extremity: full ROM; no cyanosis Left upper extremity: full ROM; no cyanosis Right lower extremity: no edema Left lower extremity: no edema Psych Appearance: grossly normal Mental Status: mental status grossly normal Affect: normal affect Attitude: cooperative Thought process: Normal thought process present Coding Level of Care Code Est Pt Prev Care >65y(52929) Diagnoses Annual physical exam Z00.00 FELIPE (generalized anxiety disorder) F41.1 Coronary artery disease involving [place] coronary artery of [place] heart without angina pectoris I25.10 Coronary Disease-Associated Artery/Lesion type: [place] artery [place] vs. transplanted heart: [place] heart Associated angina: without angina Essential hypertension I10 Hypertension type: essential hypertension Additional Codes FELIPE-7 Assessment Billing - FELIPE-7 Assessment Tool: FELIPE-7 Assessment [id number] ([id number]) PHQ-9 - 43176 - PHQ-9 Billing: Yes ([id number]) Assessment & Plan Assessment & Plan (1) Annual physical exam: Code(s): Z00.00 - Encounter for general adult medical examination without abnormal findings Category: Medical Plan: As per HPI (2) FELIPE (generalized anxiety disorder): Code(s): F41.1 - Generalized anxiety disorder Category: Medical Plan: Reports having a lot of stress at recently due to his 's health. Had a long discussion about the habit-forming nature Xanax and he does understand though feels that he is physically dependent on the medication. He has had difficult time weaning his alprazolam to only 1 tablet a day as he continues to suffer from anxiety. (3) CAD (coronary artery disease): Code(s): I25.10 - Atherosclerotic heart disease of [place] coronary artery without angina pectoris Category: Medical Qualifiers: Coronary Disease-Associated Artery/Lesion type: [place] artery [place] vs. transplanted heart: [place] heart Associated angina: without angina Qualified Code(s): I25.10 - Atherosclerotic heart disease of [place] coronary artery without angina pectoris Plan: Continues on his current blood pressure medications and aspirin, is followed by Cardiology. Most recent EKG normal. Denies any recent chest discomfort, palpitations, shortness of breath. (4) HTN (hypertension): Code(s): I10 - Essential (primary) hypertension Category: Medical Qualifiers: Hypertension type: essential hypertension Qualified Code(s): I10 - Essential (primary) hypertension Plan: Patient blood pressure generally well controlled. Does monitor his blood pressure at home and generally gets 120s to 130 systolic. Goal blood pressures to be below 140/90. Medications: Refilled alprazolam 0.5 mg PO Q8H 90 tabs 3RF 30 days F41.1 - Generalized anxiety disorder sertraline 50 mg PO DAILY 90 tabs 2RF 90 days F41.1 - Generalized anxiety disorder
== END 2024-11-13 08:15 | disposition home or self-care (01) ==
LOC: HO.HMCH 07:32
PROVIDERS: PCP Physician Assistant; Visit Provider Physician Assistant
DX: Z00.00 Encounter for general adult medical examination without abnormal findings (principal); F41.1 Generalized anxiety disorder; I25.10 Atherosclerotic heart disease of native coronary artery without angina pectoris; I10 Essential (primary) hypertension

== ENCOUNTER → 2024-11-13 07:31 | Outpatient (BNVA) | payer MEDICARE, SELFPAY | PROVIDERS: PCP Physician Assistant; Visit Provider Physician Assistant | DX: Z00.00 Encounter for general adult medical examination without abnormal findings (principal); I25.10 Atherosclerotic heart disease of native coronary artery without angina pectoris; I10 Essential (primary) hypertension; F41.1 Generalized anxiety disorder | CPT/HCPCS: 96127; 99397 ==

== ENCOUNTER 2024-11-27 10:12 | Outpatient (AMB) | payer MEDICARE, SELFPAY ==
--- OUTSIDE RECORDS SUMMARY | 2023-11-28 09:30 | XMS_ITS ---
Author Organization [facility] [place] Address [address] [place] [address] Care Team Providers Care Account Services Associate Name Role Phone Joe Tate Primary Care Provider Unavailab Hilary Huerta [phone] Encounters Encounter Location Date Provider Diagnosis [facility] [address] [place] [address] 11/28/2023 Hilary Villanueva Plan Of Treatment No Information Progress Notes * Aaron JACKSON MDOB:[birth year] (74 yo M)Acc No.[id number]:11/28/2023 Progress Note Patient: Annie Aaron MOSLEY Provider: Priscilla Villanueva DPM :1950 A ge:73 Y S ex:Male Date:11/28/2023 Address:[address] [place] [address] Pcp:Joe Tate Subjective: * Chief Complaints: * [...] Date: 11/28/2023 Generated for Printi ng/Faxing/eTransmitting on: 11/27/2024 11:54 AM EDT
--- NOTE | 2024-11-27 10:22 | MHC.PC.OV ---
Vital Signs 11/27/24 10:24 Height 5 ft 7 in Weight 157 lb 8 oz BMI 24.7 BP 132/64 Blood Pressure Location Lt brachial Position Sitting Pulse 57 Pulse Source Pulse Oximeter Temp 96.9 F Temp Source Temporal Artery Scan Pulse Oximetry (%) 98 Oxygen Delivery Method Room Air Intake Visit Reasons: [facility] ER on 11/18 for Angina symptoms Intake Note: Patient is here to follow-up after a visit the emergency department at [facility] on 11/18/24 Tax Economist Required: No Tech Brazer Tester: Present Accompanied by: Spouse Allergies No Known Allergies Allergy (Verified 11/27/24 10:39) Medication List - Last Reconciled 11/27/24 by Joe Tate PA-C albuterol sulfate 90 mcg/actuation 1 inh inhalation QID PRN 30 days alprazolam 0.5 mg PO Q8H 30 days aspirin 81 mg PO DAILY atorvastatin 80 mg PO DAILY 90 days cholecalciferol (vitamin D3) 25 mcg PO DAILY fexofenadine (Celia Allergy) 180 mg PO DAILY 90 days fluticasone propionate 50 mcg/actuation (Flonase Allergy Relief) 1 spray intranasal DAILY 30 days isosorbide mononitrate ER 60 mg PO DAILY losartan 100 mg PO DAILY nitroglycerin (Nitrostat) 0.4 mg sublingual Q5M PRN sertraline 50 mg PO DAILY 90 days Tobacco use date assessed: 11/27/24 Fall risk assessment: No Falls in past year Last assessed Fall Risk: 11/27/24 Dental Screening Dental Screen Date: 05/16/24 HPI [facility] ER on 11/18 for Angina symptoms HPI Details The patient is a 74-year-old male presenting with follow-up for discomfort and evaluation of cardiovascular symptoms. He has a history of angina with atypical symptoms, primarily presenting as throat discomfort and increased pulse rate without chest pain. The symptoms have been recurrent, with episodes of dry mouth and sore throat, and are sometimes triggered by physical exertion. The patient has a history of coronary artery disease with two stents placed six years ago. He experiences episodes of elevated blood pressure and heart rate, with a recent reading of 187/96 mmHg and pulse reaching 104 bpm. Previous evaluations included EKG, chest X-ray, and troponin tests, which showed a slight elevation in troponin levels but no significant changes in EKG. The patient is on medication including nitroglycerin and isosorbide for angina management, and he reports occasional use of Flonase for nasal symptoms. He has been advised to undergo further cardiac evaluation, including a stress test and echocardiogram, to assess for potential carotid artery stenosis and aortic aneurysm. [facility] Medical History Allergic rhinitis Surgical History History of intravascular stent placement History of colonoscopy H/O wrist surgery History of tonsillectomy Family History Father Melanoma Mother Alzheimers disease Mental health disorder Social History Housing: House Alcohol intake: current Alcohol intake frequency: holidays/special occasions only Alcohol type: beer Patient Tobacco Use Status: Former Tobacco user Tobacco use type: Cigarette e-Cigarette/Vaping Use: Never Used Second Hand Smoke Exposure: Yes service: No Current occupational status: retired Cognitive needs: No Hearing needs: No Vision needs: Yes (reading glasses) Questionnaire Thrive Questionnaire Date Thrive assessed: 11/06/24 I am a: Patient What is your living situation today?: I have a steady place to live Within the past 12 months, did the food you bought not last and you didn't have the money to get more?: I choose not to answer this question Within the past 12 months, did you worry whether your food would run out before you got money to buy more?: I choose not to answer this question Do you have trouble paying for medicines?: No Do you have trouble getting transportation to medical appointments?: No Do you have trouble paying your heating and electricity bill?: No Do you have trouble taking care of your child, family member or friend?: I choose not to answer this question Do you have trouble with day-to-day activities such as bathing, preparing meals, shopping, managing finances, etc.?: No Are you currently unemployed and looking for a job?: I choose not to answer this question Are you interested in more education?: No Please select the resources that you would like help with: None Currently or been in a relationship where the following occur: I choose not to answer THRIVE Score: 0 FELIPE-7 AMB Questionnaire FELIPE-7 Date FELIPE - 7 assessed: 11/13/24 Source: Developed by Drs. Catracho Morrison, Yodit Hayden, Massimo Rosas and colleagues, with an educational ap from [employer]. Review of Systems Const Denies headache(s) Eyes Denies loss of vision ENT Denies vertigo, Denies dizziness, Denies headache(s) and Denies sore throat Card Denies chest pain, Denies leg edema and Denies lightheadedness Resp Denies cough, Denies hemoptysis and Denies wheezing GI Denies abdominal pain, Denies melena, Denies constipation, Denies diarrhea and Denies vomiting Denies dysuria, Denies urinary frequency and Denies urinary urgency Musc Denies arthralgias, Denies joint swelling, Denies numbness and Denies tingling Neuro Denies Abnormal speech present, Denies behavioral changes, Denies vertigo, Denies dizziness, Denies headache(s), Denies loss of vision, Denies memory loss, Denies numbness and Denies tingling Psych Denies anxiety, Denies behavioral changes, Denies depression, Denies memory loss and Denies panic attacks [place]/Lymph Denies easy bleeding and Denies easy bruising Aller/Immun Denies wheezing Physical exam (Primary Care) Vital Signs: Last Vital Signs Temp 96.9 F 11/27/24 10:24 Pulse 57 11/27/24 10:24 BP 132/64 11/27/24 10:24 Pulse Ox 98 11/27/24 10:24 Oxygen Delivery Method Room Air 11/27/24 10:24 BMI result Body Mass Index 24.7 Tobacco/Smoking Status: Tobacco use Status Tobacco use date assessed 11/27/24 11/27/24 10:28 Patient Tobacco Use Status Former Tobacco user 11/27/24 10:28 Tobacco use type Cigarette 11/27/24 10:28 e-Cigarette/Vaping Use Never Used 11/27/24 10:28 Thrive Assessment: Date of Thrive Assessment Date Thrive assessed 11/06/24 11/27/24 10:28 Currently or been in a relationship where the following occur: I choose not to answer Const General: healthy appearing, no acute distress, alert and awake Nutritional Appearance: well nourished Orientation/consciousness: oriented to person, oriented to place and oriented to time HENMT Ears: TM's normal bilaterally General nose exam: Normal nasal mucous membranes and turbinates present Eyes Conjunctivae: conjunctivae normal Sclerae: sclerae normal Pupils: Equal, round and reactive pupils present Neck Neck: Yes no lymphadenopathy and Yes no JVD Thyroid: Thyroid normal Carotids: no bruits Resp Effort & Inspection: normal respiratory effort and not tachypneic Auscultation: no crackles, no rales, no rhonchi and no wheezes Cardio Rate: regular rate Rhythm: regular rhythm Heart sounds: no murmurs and normal S1 and S2 GI Palpation (GI): Soft to palpation, nontender, no hepatomegaly and no splenomegaly Auscultation: normal bowel sounds Skin General skin exam: no rashes or lesions noted and dry skin Neuro General: oriented to person, oriented to place and oriented to time Cranial nerves: Yes Equal, round and reactive pupils present Speech: No Abnormal speech present Gait exam (Neuro): Normal gait present Motor exam (neuro): no tremor noted Extrem Right upper extremity: full ROM Left upper extremity: full ROM Right lower extremity: full ROM; no edema Left lower extremity: full ROM; no edema Psych Mental Status: mental status grossly normal Speech and movement: Normal speech and movement present Affect: normal affect Attitude: cooperative Thought process: Normal thought process present Coding Level of Care Code Est Pt Level 4 (24830) Diagnoses Exertional angina I20.89 Coronary artery disease involving [place] coronary artery of [place] heart without angina pectoris I25.10 Associated angina: without angina Coronary Disease-Associated Artery/Lesion type: [place] artery [place] vs. transplanted heart: [place] heart Pre-syncope R55 Assessment & Plan Assessment & Plan (1) Exertional angina: Code(s): I20.89 - Other forms of angina pectoris Category: Medical Plan: The patient experiences atypical angina symptoms, primarily presenting as throat discomfort and increased pulse rate without chest pain. A stress test and echocardiogram are recommended to further evaluate the condition. The patient is advised to continue using nitroglycerin and isosorbide as needed for symptom management. (2) CAD (coronary artery disease): Code(s): I25.10 - Atherosclerotic heart disease of [place] coronary artery without angina pectoris Category: Medical Qualifiers: Associated angina: without angina Coronary Disease-Associated Artery/Lesion type: [place] artery [place] vs. transplanted heart: [place] heart Qualified Code(s): I25.10 - Atherosclerotic heart disease of [place] coronary artery without angina pectoris Plan: The patient has a history of coronary artery disease with two stents placed six years ago. Further cardiac evaluation is advised to assess the current status of the stents and coronary arteries. (3) Pre-syncope: Code(s): R55 - Syncope and collapse Category: Medical Plan: There is a suspicion of carotid artery stenosis due to the patient's symptoms. A carotid artery ultrasound is recommended to evaluate for stenosis. Orders: Orders US carotid duplex BI Today R55 - Syncope and collapse Medications: Refilled fexofenadine (Celia Allergy) 180 mg PO DAILY 90 tabs 1RF 90 days J30.1 - Allergic rhinitis due to pollen
[2024-11-27 10:24] VITALS: BP 132/64; PULSE 57; TEMP 36.1; O2SAT 98; BMI 24.7
--- OUTSIDE RECORDS SUMMARY | 2024-11-27 11:55 | XMS_ITS | Patient Health Record ---
Author Organization [facility] Address [address] [facility] [place] [address] Care Team Providers Care Construction Administrative Assistant Name Role Phone Joe Tate Primary Care Provider Unavailab Hilary Huerta Unavailable [phone] Allergies Allergen (clinical drug ingredient) Drug/Non Drug [...] Problem Acquired hammer toe of right foot ([id number]) Hammer toe of right foot (M20.41) Active confirmed Plan Of Treatment No Information Insurance Providers Payer Name Payer Address Payer Phone Subscriber Number Group Number Insured Name Patient Relationship to Insured Coverage Start Date Coverage End Date [employer] [place] [employer] [facility] [address] [place] [address] [phone] [id number] Aaron Bae i Self - patient is the insured Medical (General) History Medical History History ICD Code Anxiety Back,Hip,and Knee pain Broken bones High blood pressure Measles Chicken pox CAD (Cholesterol) covid-19 Heart disease Sciatica Surgical History Surgery Date(Month/Year) left wrist fx 1965 2 Heart Stents 05/26/2017
--- OUTSIDE RECORDS SUMMARY | 2024-11-27 11:55 | XMS_ITS | Clinical Summary ---
Author Organization [facility] Address [address] [place] [id number] Phone Care Team Providers Care Track Repair Worker Name Role Phone Joe Tate Primary Care [...] FOBT 1994 SIGMOIDOSCOPY 1994 VIRTUAL COLONOSCOPY 1994 INFLUENZA VACCINE (#1) 2024 , 01/10/2019, 01/09/2018, Additional history exists RSV VACCINE (1 - 1-dose 75+ series) 2024 COVID-19 VACCINE (2 - 2024- season) 2024 05/21/2020 Adult Td,Tdap Booster 11/28/2028 11/28/2018 ZOSTER VACCINES Completed 02/28/2018, 11/19, 05/22/2012 PNEUMOCOCCAL VACCINES (50+ years) Completed 01/03/2019, [...] Insurance [employer] [place] [employer] H[employer] REPLACEMENT [employer] [place] [employer] [place] REPLACEMENT MEDICARE HMO REPLACEMENT [employer] [place] [employer] HMO [employer]PLACEMENT [employer] [place] [employer] HMO REPLACEMENT [address] [place] [address] MEDICARE HMO REPLACEMENT [employer] [place] [employer] H[employer] [place]PLACEMENT [employer] [place] [employer] H[employer] REPLACEMENT [employer] [place] [employer] H[employer] REPLACEMENT Care Teams Track Repair Worker Relationship Specialty Start Date End Date Joe Tate PA [address] [place] [id number] PCP - General 12/12/19 Additional Source Comments The information contained in this document represents components of the legal health record. It is not the complete legal health record.[facility]
== END 2024-11-27 11:00 | disposition home or self-care (01) ==
LOC: HO.HMCH 10:13
PROVIDERS: PCP Physician Assistant; Visit Provider Physician Assistant
DX: I25.10 Atherosclerotic heart disease of native coronary artery without angina pectoris (principal); R55 Syncope and collapse

== ENCOUNTER → 2024-11-27 10:12 | Outpatient (BNVA) | payer MEDICARE, SELFPAY | PROVIDERS: PCP Physician Assistant; Visit Provider Physician Assistant | DX: I25.118 Atherosclerotic heart disease of native coronary artery with other forms of angina pectoris (principal); R55 Syncope and collapse; J30.1 Allergic rhinitis due to pollen | CPT/HCPCS: 99212 ==